=== PATIENT | female | born 1960 | race Caucasian/White ===

== ENCOUNTER 2021-01-23 15:06 | Emergency (ER) | payer OTHER, MEDICARE ==
[~2021-01-23] VITALS: Ht 172.7 cm; Wt 73.0 kg
[2021-01-23 15:37] VITALS: BP 148/85
== END 2021-01-23 16:39 | disposition home or self-care (01) ==
LOC: ER 15:06
DX: L02.31 Cutaneous abscess of buttock (principal); I10 Essential (primary) hypertension; M19.90 Unspecified osteoarthritis, unspecified site
CPT/HCPCS: 10060

== ENCOUNTER 2021-01-25 21:27 | Emergency (ER) | payer OTHER, MEDICARE ==
[~2021-01-25] VITALS: Ht 172.7 cm; Wt 74.4 kg
[2021-01-25 23:06] VITALS: BP 99/70
== END 2021-01-26 01:05 | disposition home or self-care (01) ==
LOC: ER 21:29
DX: L02.31 Cutaneous abscess of buttock (principal); I10 Essential (primary) hypertension

== ENCOUNTER 2021-02-05 12:59 | Emergency (ER) | payer OTHER, MEDICARE ==
[~2021-02-05] VITALS: Ht 172.7 cm; Wt 74.4 kg
[2021-02-05 15:42] VITALS: BP 142/91
== END 2021-02-05 15:50 | disposition home or self-care (01) ==
LOC: ER 12:59
DX: L02.31 Cutaneous abscess of buttock (principal); I10 Essential (primary) hypertension

== ENCOUNTER 2021-04-16 22:47 | Inpatient (IN) | payer OTHER, MEDICARE ==
[~2021-04-16] VITALS: Ht 172.7 cm; Wt 79.8 kg
[2021-04-16] MEDS ORDERED: ACCU-CHEK COMFORT CURVE STRIP VI ONE (23:30)
[2021-04-16] MEDS ORDERED: SODIUM CHLORIDE 0.9% 500 ML IV ONE (23:30)
[2021-04-16] MEDS ORDERED: VANCOMYCIN 1,500 MG in D5W 5% 250 ML IV STA (23:55)
[2021-04-17] VITALS (45 sets, daily range): BP systolic 84–132; BP diastolic 50–80
[2021-04-17 00:35] LABS: Hemoglobin 11.5 g/dL (12.2-16.2); Mean Corpuscular Hemoglobin 27.5 pg (28.0-32.0); Mean Corpuscular Hgb Conc. 32.8 g/dL (32.0-36.0); Mean Corpuscular Volume 83.8 fL (80.0-100.0); Red Blood Cells 4.17 10^6/uL (4.0-5.20); Red Cell Distribution Width 16.4 % (11.8-14.3)
[2021-04-17] MEDS ORDERED: VANCOMYCIN 1GM/250ML 500 ML IV ONE (00:42)
[2021-04-17 00:44] LABS: Basophils % (manual) 0 (0.0-2.0); Blast Cells 0; Eosinophils % (manual) 0 (0-7); Metamyelocytes % 0; Myelocytes % 0; Promyelocytes % 0; Reactive Lymphocytes 0
[2021-04-17 00:55] LABS: BUN/Creatinine Ratio 22.9; Potassium 3.2 mmol/L (3.5-5.1)
[2021-04-17 00:57] LABS: Bilirubin, Total 0.4 mg/dL (0.2-1.0); Total Protein 6.3 g/dL (6.4-8.2)
[2021-04-17 01:00] LABS: Lactic Acid w/Reflex 2.3 mmol/L (0.4-2.0)
[2021-04-17 01:14] LABS: Band Neutrophils % (manual) 46; Lymphocytes % (manual) 8 (10.0-50.0); Monocytes % (manual) 1 (0-12)
[2021-04-17] MEDS ORDERED: ACETAMINOPHEN 325 MG TAB PO ONE (02:30)
[2021-04-17] MEDS ORDERED: SODIUM CHLORIDE 0.9% 1,000 ML IV ONE (03:30)
[2021-04-17] MEDS: NOREPINEPHRINE 8 MG/250ML KIT 250 ML IV SCH ×2 (04:29→14:55)
[2021-04-17] MEDS ORDERED: VANCOMYCIN PER PHARMACY 0 MG IV SCH (04:30)
[2021-04-17] MEDS ORDERED: ACETAMINOPHEN 325 MG TAB PO PRN ×2 (04:30→14:00)
[2021-04-17] MEDS ORDERED: DOCUSATE SOD 100 MG CAP PO PRN (04:30)
[2021-04-17] MEDS ORDERED: DEXTROSE (50%) 50ML SYRG IV PRN (04:30)
[2021-04-17] MEDS ORDERED: SODIUM CHLORIDE 0.9% 1,000 ML IV SCH (04:30)
[2021-04-17] MEDS ORDERED: ONDANSETRON HCL 4 MG/2 ML VIAL IV PRN (04:30)
[2021-04-17] MEDS ORDERED: fentaNYL CITRATE 100 MCG/2 ML VL IV ONE (04:45)
[2021-04-17] MEDS ORDERED: POTASSIUM CHL 20MEQ/100ML 100 ML IV ONE ×2 (05:00→10:16)
[2021-04-17] MEDS ORDERED: methylPREDNISolone SOD SUCC 125 MG/2 ML VL IV ONE (05:15)
[2021-04-17] MEDS ORDERED: NITROGLYCERIN 0.4 MG SL TAB SL PRN (05:30)
[2021-04-17] MEDS ORDERED: MORPHINE SULFATE INJECTION 2 MG/ML SYRG IV PRN (05:30)
[2021-04-17] MEDS: ALBUMIN 25% 50 ML IV SCH ×3 (05:40→20:59)
[2021-04-17] MEDS ORDERED: MORPHINE SULFATE 4 MG/ML SYR/VIAL IV PRN (07:15)
[2021-04-17] MEDS: InsuLIN REG 1unit/0.01ml Soln (100units/ml) SC SCH ×4 (07:39→22:30)
[2021-04-17] MEDS: ACCU-CHEK COMFORT CURVE STRIP VI SCH ×4 (07:39→22:28)
[2021-04-17 08:01] LABS: Red Cell Distribution Width 16.2 % (11.8-14.3)
[2021-04-17 08:07] LABS: Calcium 7.3 mg/dL (8.5-10.1)
[2021-04-17 08:08] LABS: Hematocrit 33.4 % (36.0-46.0); Hemoglobin 11.1 g/dL (12.2-16.2); Mean Corpuscular Hemoglobin 27.8 pg (28.0-32.0); Mean Corpuscular Hgb Conc. 33.4 g/dL (32.0-36.0); Mean Corpuscular Volume 83.2 fL (80.0-100.0); Red Blood Cells 4.01 10^6/uL (4.0-5.20)
[2021-04-17 08:11] LABS: BUN/Creatinine Ratio 27.4; Bilirubin, Total 0.5 mg/dL (0.2-1.0)
[2021-04-17 08:24] LABS: White Blood Cell 44.7 10^3/uL (4.4-10.8)
[2021-04-17 08:25] LABS: Basophils % (manual) 0 (0.0-2.0); Blast Cells 0; Eosinophils % (manual) 0 (0-7); Myelocytes % 0; Promyelocytes % 0; Reactive Lymphocytes 0
[2021-04-17 08:40] LABS: Urine Bacteria NONE SEEN /hpf (None Seen); Urine Blood 2+ /uL (Negative); Urine Budding Yeast MODERATE /hpf (None Seen); Urine Specific Gravity 1.018 (1.001-1.035); Urine WBC 844 /hpf (0 - 5); Urine WBC Clumps PRESENT /hpf (None Seen)
[2021-04-17] MEDS ORDERED: SODIUM CHLORIDE 0.9% 2,100 ML IV ONE (09:00)
[2021-04-17] MEDS ORDERED: cefTRIAXone 1GM/50ML D5W 50 ML IV SCH (09:00)
[2021-04-17] MEDS ORDERED: cefTRIAXone 1GM/50ML D5W 50 ML IV ONE (09:05)
[2021-04-17] MEDS ORDERED: PIPERACILLIN-TAZOB 2.25GM 50 ML IV SCH (09:15)
[2021-04-17] MEDS: PIPERACILLIN-TAZOB 2.25GM 50 ML IV SCH ×3 (09:21→20:59)
[2021-04-17] MEDS: LINEZOLID 600MG/300ML 300 ML IV SCH ×2 (09:45→22:01)
[2021-04-17] MEDS: FAMOTIDINE (10MG/ML) 2ML VL IV SCH ×2 (09:45→22:00)
[2021-04-17] MEDS ORDERED: HEPARIN SODIUM (PORCINE) 5000 UNITS/ML 1ML VIAL SC SCH (10:00)
[2021-04-17] MEDS: SODIUM CHLORIDE 0.9% 1,000 ML IV SCH ×3 (10:28→18:18)
[2021-04-17] MEDS ORDERED: PANT40TA2 PO (10:55)
[2021-04-17] MEDS ORDERED: ALEN70TA2 PO (10:55)
[2021-04-17] MEDS ORDERED: PRE1T PO (10:55)
[2021-04-17] MEDS ORDERED: IBUP800T27 PO (10:55)
[2021-04-17] MEDS ORDERED: LEFL20TA PO (10:55)
[2021-04-17] MEDS ORDERED: HYDR200T36 PO (11:00)
[2021-04-17] MEDS ORDERED: LISI-285 PO (11:00)
[2021-04-17] MEDS ORDERED: ATO40T PO (11:00)
[2021-04-17] MEDS ORDERED: TOFA5TAB PO (11:00)
[2021-04-17] MEDS ORDERED: EMPA1TAB3 PO (11:00)
[2021-04-17] MEDS: POTASSIUM CHL 20MEQ/100ML 100 ML IV SCH ×3 (11:05→14:43)
[2021-04-17 12:06] LABS: Band Neutrophils % (manual) 29; Lymphocytes % (manual) 2 (10.0-50.0); Metamyelocytes % 1; Monocytes % (manual) 3 (0-12)
[2021-04-17] MEDS ORDERED: methylPREDNISolone SOD SUCC 40 MG/ML VL IV ONE (12:30)
[2021-04-17] MEDS ORDERED: methylPREDNISolone SOD SUCC 40 MG/ML VL ONE (12:32)
[2021-04-17] MEDS ORDERED: LORazepam 2MG/ML-1ML VIAL IV PRN (14:00)
[2021-04-17] MEDS ORDERED: PROCHLORPERAZINE MALEATE 10 MG TAB PO ONE (14:30)
[2021-04-17 16:26] LABS: Uric Acid 8.6 mg/dL (2.6-6.0)
[2021-04-17 16:50] LABS: CRP High Sensitivity > 19.0 mg/dL (< 0.3)
[2021-04-17] MEDS: methylPREDNISolone SOD SUCC 40 MG/ML VL IV SCH (17:23)
[2021-04-17] MEDS: HYDROcodone-ACET 5/325MG TAB PO PRN (17:30)
[2021-04-17] MEDS ORDERED: PROCHLORPERAZINE MALEATE 10 MG TAB PO PRN (22:00)
[2021-04-17] MEDS: ASCORBIC ACID 500 MG TAB PO SCH (22:01)
[2021-04-17] MEDS ORDERED: dilTIAZem 25 MG/5 ML VIAL IV ONE (23:56)
[2021-04-18] VITALS (85 sets, daily range): BP systolic 71–128; BP diastolic 41–91
[2021-04-18] MEDS: methylPREDNISolone SOD SUCC 40 MG/ML VL IV SCH ×3 (00:10→22:25)
[2021-04-18] MEDS ORDERED: dilTIAZem 25 MG/5 ML VIAL IV ONE (00:15)
[2021-04-18 00:32] LABS: BUN/Creatinine Ratio 35.8; Calcium 7.5 mg/dL (8.5-10.1); Potassium 3.9 mmol/L (3.5-5.1)
[2021-04-18] MEDS ORDERED: PHENYLEPHRINE IV 250 ML IV ONE (00:57)
[2021-04-18] MEDS ORDERED: AMIODARONE 450mg/250ml AE 250 ML IV ONE (01:18)
[2021-04-18] MEDS ORDERED: AMIODARONE 450mg/250ml AE 250 ML IV SCH (01:45)
[2021-04-18] MEDS: PIPERACILLIN-TAZOB 2.25GM 50 ML IV SCH ×4 (03:22→20:17)
[2021-04-18] MEDS ORDERED: ALBUMIN 5% 250 ML IV ONE (03:45)
[2021-04-18] MEDS: SODIUM CHLORIDE 0.9% 1,000 ML IV SCH ×2 (05:00→15:38)
[2021-04-18 05:53] LABS: Basophils # (auto) 0.1 10 ^3/uL (0-0.2); Basophils % (auto) 0.3 % (0.0-2.0); Eosinophils # (auto) 0 10 ^3/uL (0-0.8); Hematocrit 43.4 % (36.0-46.0); Hemoglobin 14.2 g/dL (12.2-16.2); Lymphocytes # (auto) 0.1 10 ^3/uL (0.4-5.4); Lymphocytes % (auto) 0.4 % (10.0-50.0); Mean Corpuscular Hemoglobin 27.4 pg (28.0-32.0); Mean Corpuscular Hgb Conc. 32.8 g/dL (32.0-36.0); Mean Corpuscular Volume 83.7 fL (80.0-100.0); Monocytes # (auto) 0.2 10 ^3/uL (0-1.3); Monocytes % (auto) 1.1 % (0.0-12.0); Neutrophils # (auto) 19.5 10 ^3/uL (1.6-8.6); Neutrophils % (auto) 98.2 % (37.0-80.0); Nucleated Red Blood Cells % 0.1 %; Red Blood Cells 5.19 10^6/uL (4.0-5.20); Red Cell Distribution Width 16.6 % (11.8-14.3); White Blood Cell 19.9 10^3/uL (4.4-10.8)
[2021-04-18 06:18] LABS: Magnesium 2.2 mg/dL (1.6-2.6); Potassium 3.4 mmol/L (3.5-5.1)
[2021-04-18 06:21] LABS: INR 1.07 (0.9-1.15); Partial Thromboplastin Time 33.5 sec (23.6-33.0)
[2021-04-18 06:31] LABS: Albumin 2.3 g/dL (3.4-5.0); BUN/Creatinine Ratio 36.8; Bilirubin, Total 0.4 mg/dL (0.2-1.0); Calcium 7.6 mg/dL (8.5-10.1); Phosphorus 3.9 mg/dL (2.5-4.90)
[2021-04-18] MEDS: ACCU-CHEK COMFORT CURVE STRIP VI SCH ×4 (06:38→22:00)
[2021-04-18] MEDS: InsuLIN REG 1unit/0.01ml Soln (100units/ml) SC SCH ×4 (06:39→22:44)
[2021-04-18 06:47] LABS: Thyroid Stimulating Hormone 0.04 uIU/mL (0.358-3.74)
[2021-04-18] MEDS: MORPHINE SULFATE 4 MG/ML SYR/VIAL IV PRN ×2 (08:48→14:08)
[2021-04-18] MEDS: ENOXAPARIN SOD 30 MG/0.3 ML SYRINGE SC SCH (08:52)
[2021-04-18] MEDS: FAMOTIDINE (10MG/ML) 2ML VL IV SCH ×3 (09:27→22:25)
[2021-04-18] MEDS: LINEZOLID 600MG/300ML 300 ML IV SCH (09:27)
[2021-04-18] MEDS: AMIODARONE 450mg/250ml AE 250 ML IV SCH (09:36)
[2021-04-18] MEDS: ASCORBIC ACID 500 MG TAB PO SCH (10:00)
[2021-04-18] MEDS ORDERED: MIDAZOLAM HCL 2MG/2ML 2ml VIAL (1mg/ml) IV ONE (10:15)
[2021-04-18] MEDS ORDERED: fentaNYL CITRATE 100 MCG/2 ML VL IV ONE (10:15)
[2021-04-18] MEDS ORDERED: POTASSIUM CHLORIDE 60 MEQ, LIDOCAINE 1% (LOCAL ANESTH.) 6 ML in SODIUM CHL 0.9% 500 ML IV ONE (11:30)
[2021-04-18] MEDS ORDERED: DIGOXIN (250MCG/ML) 2 ML AMPULE IV ONE (11:30)
[2021-04-18] MEDS ORDERED: LIDOCAINE 2%HCL (LOCAL ANESTH.) INJ 20ML MDV ONE (12:46)
[2021-04-18] MEDS: DIGOXIN (250MCG/ML) 2 ML AMPULE IV SCH ×2 (13:30→20:17)
[2021-04-18] MEDS ORDERED: AMIODARONE HCL 150 MG in D5W 5% 100 ML IV ONE (14:15)
[2021-04-18] MEDS ORDERED: LORazepam 2MG/ML-1ML VIAL IV PRN (14:15)
[2021-04-18 14:47] LABS: Free T3 2.11 pg/mL (2.3-4.2)
[2021-04-18 14:48] LABS: Free T4 (Free Thyroxine) 1.23 ng/dL (0.89-1.76)
[2021-04-18] MEDS: HYDROcodone-ACET 5/325MG TAB PO PRN (15:40)
[2021-04-18] MEDS ORDERED: VANCOMYCIN PER PHARMACY 0 MG IV SCH (21:15)
[2021-04-19] VITALS (37 sets, daily range): BP systolic 103–150; BP diastolic 65–93
[2021-04-19] MEDS: AMIODARONE 450mg/250ml AE 250 ML IV SCH (01:00)
[2021-04-19] MEDS: DIGOXIN (250MCG/ML) 2 ML AMPULE IV SCH (02:17)
[2021-04-19] MEDS: SODIUM CHLORIDE 0.9% 1,000 ML IV SCH ×2 (02:46→15:33)
[2021-04-19] MEDS: PIPERACILLIN-TAZOB 2.25GM 50 ML IV SCH ×4 (03:00→21:15)
[2021-04-19] MEDS: HYDROcodone-ACET 5/325MG TAB PO PRN ×2 (03:01→14:23)
[2021-04-19 05:52] LABS: Red Blood Cells 3.42 10^6/uL (4.0-5.20)
[2021-04-19 05:54] LABS: Hematocrit 28.3 % (36.0-46.0); Hemoglobin 9.4 g/dL (12.2-16.2); Mean Corpuscular Hemoglobin 27.4 pg (28.0-32.0); Mean Corpuscular Hgb Conc. 33.1 g/dL (32.0-36.0); Mean Corpuscular Volume 82.9 fL (80.0-100.0); Red Cell Distribution Width 16.7 % (11.8-14.3)
[2021-04-19 05:59] LABS: Basophils % (manual) 0 (0.0-2.0); Blast Cells 0; Eosinophils % (manual) 0 (0-7); Metamyelocytes % 0; Myelocytes % 0; Promyelocytes % 0; Reactive Lymphocytes 0; White Blood Cell 33.5 10^3/uL (4.4-10.8)
[2021-04-19 06:13] LABS: Albumin 1.7 g/dL (3.4-5.0); Calcium 8.4 mg/dL (8.5-10.1); Potassium 4.1 mmol/L (3.5-5.1)
[2021-04-19 06:17] LABS: Bilirubin, Total 0.3 mg/dL (0.2-1.0); Total Protein 5.5 g/dL (6.4-8.2)
[2021-04-19] MEDS: ACCU-CHEK COMFORT CURVE STRIP VI SCH ×4 (06:32→22:03)
[2021-04-19] MEDS: InsuLIN REG 1unit/0.01ml Soln (100units/ml) SC SCH ×4 (06:34→22:22)
[2021-04-19 08:41] LABS: Band Neutrophils % (manual) 12; Lymphocytes % (manual) 2 (10.0-50.0); Monocytes % (manual) 1 (0-12)
[2021-04-19] MEDS: ENOXAPARIN SOD 30 MG/0.3 ML SYRINGE SC SCH (09:27)
[2021-04-19] MEDS: FAMOTIDINE (10MG/ML) 2ML VL IV SCH (09:27)
[2021-04-19] MEDS: methylPREDNISolone SOD SUCC 40 MG/ML VL IV SCH ×2 (09:27→22:00)
[2021-04-19] MEDS: MORPHINE SULFATE 4 MG/ML SYR/VIAL IV PRN ×3 (10:54→22:26)
[2021-04-19] MEDS: VANCOMYCIN 1GM/250ML 250 ML IV SCH ×2 (11:15→21:59)
[2021-04-19] MEDS ORDERED: LORazepam 2MG/ML-1ML VIAL IV ONE (13:15)
[2021-04-19] MEDS ORDERED: DEXTROSE (50%) 50ML SYRG IV PRN (13:30)
[2021-04-19] MEDS ORDERED: AMIODARONE HCL 200 MG TAB PO ONE (14:15)
[2021-04-19] MEDS ORDERED: METOPROLOL TARTRATE 25 MG TAB PO ONE (14:15)
[2021-04-19] MEDS: AMIODARONE HCL 200 MG TAB PO SCH (22:00)
[2021-04-19] MEDS ORDERED: SACUBITRIL-VALSARTAN 24mg/26mg TAB PO SCH (22:00)
[2021-04-19] MEDS: ATORVASTATIN 20 MG TAB PO SCH (22:01)
[2021-04-19] MEDS: METOPROLOL TARTRATE 25 MG TAB PO SCH (22:03)
[2021-04-20] MEDS: SODIUM CHLORIDE 0.9% 1,000 ML IV SCH ×2 (02:46→18:28)
[2021-04-20] MEDS: MORPHINE SULFATE 4 MG/ML SYR/VIAL IV PRN ×2 (03:40→08:05)
[2021-04-20] MEDS: PIPERACILLIN-TAZOB 2.25GM 50 ML IV SCH ×4 (03:45→21:30)
[2021-04-20 06:02] LABS: Hematocrit 27.4 % (36.0-46.0); Hemoglobin 9.1 g/dL (12.2-16.2); Mean Corpuscular Hemoglobin 27.8 pg (28.0-32.0); Mean Corpuscular Hgb Conc. 33.1 g/dL (32.0-36.0); Mean Corpuscular Volume 83.9 fL (80.0-100.0); Red Blood Cells 3.27 10^6/uL (4.0-5.20); Red Cell Distribution Width 16.8 % (11.8-14.3); White Blood Cell 28.1 10^3/uL (4.4-10.8)
[2021-04-20 06:06] VITALS: BP 114/69
[2021-04-20 06:07] LABS: Basophils % (manual) 0 (0.0-2.0); Blast Cells 0; Eosinophils % (manual) 0 (0-7); Myelocytes % 0; Promyelocytes % 0; Reactive Lymphocytes 0
[2021-04-20] MEDS: ACCU-CHEK COMFORT CURVE STRIP VI SCH ×4 (06:09→22:00)
[2021-04-20] MEDS: InsuLIN REG 1unit/0.01ml Soln (100units/ml) SC SCH ×4 (06:17→22:00)
[2021-04-20 06:23] LABS: INR 0.98 (0.9-1.15)
[2021-04-20 06:25] LABS: Calcium 9.1 mg/dL (8.5-10.1); Potassium 4.3 mmol/L (3.5-5.1)
[2021-04-20 06:28] LABS: Albumin 1.7 g/dL (3.4-5.0); BUN/Creatinine Ratio 35.5
[2021-04-20 06:31] LABS: Bilirubin, Total 0.5 mg/dL (0.2-1.0); Total Protein 5.1 g/dL (6.4-8.2)
[2021-04-20 09:14] VITALS: BP 114/72
[2021-04-20 09:25] LABS: Band Neutrophils % (manual) 4; Lymphocytes % (manual) 2 (10.0-50.0); Metamyelocytes % 1; Monocytes % (manual) 1 (0-12)
[2021-04-20] MEDS: VANCOMYCIN 1GM/250ML 250 ML IV SCH ×2 (10:05→22:00)
[2021-04-20] MEDS: methylPREDNISolone SOD SUCC 40 MG/ML VL IV SCH ×2 (10:06→22:14)
[2021-04-20] MEDS: AMIODARONE HCL 200 MG TAB PO SCH ×2 (10:06→22:17)
[2021-04-20] MEDS: METOPROLOL TARTRATE 25 MG TAB PO SCH (10:06)
[2021-04-20] MEDS: ENOXAPARIN SOD 30 MG/0.3 ML SYRINGE SC SCH (10:07)
[2021-04-20] MEDS: FAMOTIDINE (10MG/ML) 2ML VL IV SCH ×2 (10:07→22:14)
[2021-04-20] MEDS ORDERED: hydrOXYchloroQUINE SULFATE 200 MG TAB PO ONE (10:45)
[2021-04-20 12:50] VITALS: BP 132/86
[2021-04-20] MEDS: MORPHINE SULFATE INJECTION 2 MG/ML SYRG IV PRN ×2 (13:10→20:55)
[2021-04-20 16:33] VITALS: BP 119/84
[2021-04-20 22:09] VITALS: BP 116/79
[2021-04-20] MEDS: hydrOXYchloroQUINE SULFATE 200 MG TAB PO SCH (22:14)
[2021-04-20] MEDS: ATORVASTATIN 20 MG TAB PO SCH (22:16)
[2021-04-21] MEDS: VANCOMYCIN 1GM/250ML 250 ML IV SCH ×3 (00:15→14:12)
[2021-04-21] MEDS: PIPERACILLIN-TAZOB 2.25GM 50 ML IV SCH ×5 (03:30→21:18)
[2021-04-21 05:09] VITALS: BP 121/85
[2021-04-21] MEDS: ACCU-CHEK COMFORT CURVE STRIP VI SCH ×4 (06:54→22:11)
[2021-04-21] MEDS: InsuLIN REG 1unit/0.01ml Soln (100units/ml) SC SCH ×4 (06:55→22:24)
[2021-04-21] MEDS: MORPHINE SULFATE INJECTION 2 MG/ML SYRG IV PRN ×5 (07:00→20:11)
[2021-04-21 09:00] VITALS: BP 183/123
[2021-04-21] MEDS: FAMOTIDINE (10MG/ML) 2ML VL IV SCH ×2 (10:02→22:11)
[2021-04-21] MEDS: methylPREDNISolone SOD SUCC 40 MG/ML VL IV SCH ×2 (10:03→22:11)
[2021-04-21] MEDS: AMIODARONE HCL 200 MG TAB PO SCH ×2 (10:04→22:10)
[2021-04-21] MEDS: hydrOXYchloroQUINE SULFATE 200 MG TAB PO SCH ×2 (10:04→22:10)
[2021-04-21] MEDS: ENOXAPARIN SOD 30 MG/0.3 ML SYRINGE SC SCH (10:05)
[2021-04-21 11:06] LABS: Hematocrit 32.6 % (36.0-46.0); Hemoglobin 10.4 g/dL (12.2-16.2); Mean Corpuscular Hemoglobin 27.4 pg (28.0-32.0); Mean Corpuscular Hgb Conc. 31.8 g/dL (32.0-36.0); Mean Corpuscular Volume 86.2 fL (80.0-100.0); Red Blood Cells 3.79 10^6/uL (4.0-5.20); Red Cell Distribution Width 16.9 % (11.8-14.3); White Blood Cell 25.8 10^3/uL (4.4-10.8)
[2021-04-21 11:22] LABS: Calcium 9.3 mg/dL (8.5-10.1); Potassium 4.2 mmol/L (3.5-5.1)
[2021-04-21 11:25] LABS: BUN/Creatinine Ratio 42.9
[2021-04-21 11:26] LABS: Basophils % (manual) 0 (0.0-2.0); Blast Cells 0; Eosinophils % (manual) 0 (0-7); Metamyelocytes % 0; Myelocytes % 0; Promyelocytes % 0; Reactive Lymphocytes 0
[2021-04-21 12:39] LABS: Band Neutrophils % (manual) 6; Lymphocytes % (manual) 7 (10.0-50.0); Monocytes % (manual) 4 (0-12)
[2021-04-21 13:00] VITALS: BP 122/82
[2021-04-21 17:00] VITALS: BP 131/82
[2021-04-21 22:00] VITALS: BP 134/94
[2021-04-21] MEDS: ATORVASTATIN 20 MG TAB PO SCH (22:10)
[2021-04-22] MEDS: PIPERACILLIN-TAZOB 2.25GM 50 ML IV SCH ×4 (03:49→21:06)
[2021-04-22] MEDS: MORPHINE SULFATE INJECTION 2 MG/ML SYRG IV PRN ×2 (04:31→10:59)
[2021-04-22 05:00] VITALS: BP 128/83
[2021-04-22 05:05] LABS: Urine Bacteria NONE SEEN /hpf (None Seen); Urine Blood Negative /uL (Negative); Urine Hyaline Cast FEW /lpf (0 - 2); Urine WBC 2 /hpf (0 - 5)
[2021-04-22 06:08] LABS: Basophils # (auto) 0 10 ^3/uL (0-0.2); Basophils % (auto) 0.2 % (0.0-2.0); Eosinophils # (auto) 0 10 ^3/uL (0-0.8); Hematocrit 31.8 % (36.0-46.0); Hemoglobin 10.2 g/dL (12.2-16.2); Lymphocytes # (auto) 0.3 10 ^3/uL (0.4-5.4); Lymphocytes % (auto) 1.7 % (10.0-50.0); Mean Corpuscular Hemoglobin 27.5 pg (28.0-32.0); Mean Corpuscular Hgb Conc. 32.2 g/dL (32.0-36.0); Mean Corpuscular Volume 85.3 fL (80.0-100.0); Monocytes # (auto) 0.5 10 ^3/uL (0-1.3); Monocytes % (auto) 2.7 % (0.0-12.0); Neutrophils # (auto) 19.1 10 ^3/uL (1.6-8.6); Neutrophils % (auto) 95.4 % (37.0-80.0); Red Blood Cells 3.73 10^6/uL (4.0-5.20); Red Cell Distribution Width 16.6 % (11.8-14.3)
[2021-04-22 06:21] LABS: Calcium 9.3 mg/dL (8.5-10.1); Potassium 4.6 mmol/L (3.5-5.1)
[2021-04-22 06:23] LABS: BUN/Creatinine Ratio 38.7
[2021-04-22] MEDS: ACCU-CHEK COMFORT CURVE STRIP VI SCH ×4 (06:55→22:03)
[2021-04-22] MEDS: InsuLIN REG 1unit/0.01ml Soln (100units/ml) SC SCH ×4 (06:56→22:05)
[2021-04-22 09:00] VITALS: BP 132/86
[2021-04-22] MEDS ORDERED: LIDOCAINE VISCOUS 2% 15ML UD PO ONE (09:00)
[2021-04-22] MEDS ORDERED: fentaNYL CITRATE 100 MCG/2 ML VL IV PRN (09:00)
[2021-04-22] MEDS ORDERED: MIDAZOLAM HCL 2MG/2ML 2ml VIAL (1mg/ml) IV ONE (09:00)
[2021-04-22] MEDS: hydrOXYchloroQUINE SULFATE 200 MG TAB PO SCH ×2 (10:00→22:03)
[2021-04-22] MEDS: AMIODARONE HCL 200 MG TAB PO SCH ×2 (10:00→22:02)
[2021-04-22] MEDS: ENOXAPARIN SOD 30 MG/0.3 ML SYRINGE SC SCH (10:41)
[2021-04-22] MEDS: methylPREDNISolone SOD SUCC 40 MG/ML VL IV SCH ×2 (10:41→22:02)
[2021-04-22] MEDS: FAMOTIDINE (10MG/ML) 2ML VL IV SCH ×2 (10:41→22:01)
[2021-04-22] MEDS ORDERED: ceFAZolin 1GM/50ML 100 ML IV ONE (12:45)
[2021-04-22 12:54] VITALS: BP 120/77
[2021-04-22] MEDS: VANCOMYCIN 1GM/250ML 250 ML IV SCH (13:00)
[2021-04-22] MEDS ORDERED: ceFAZolin 1GM VL ONE (13:09)
[2021-04-22] MEDS ORDERED: ROPIVACAINE 0.5% (5MG/ML) 20ML AMPULE IJ ONE (13:09)
[2021-04-22] MEDS ORDERED: ONDANSETRON HCL 4 MG/2 ML VIAL ONE (13:17)
[2021-04-22] MEDS ORDERED: SODIUM CHLORIDE LOCK 10 ML ONE (13:17)
[2021-04-22] MEDS ORDERED: PROPOFOL 10 MG/ML 20 ML IV ONE (13:17)
[2021-04-22] MEDS ORDERED: fentaNYL CITRATE 100 MCG/2 ML VL ONE (13:18)
[2021-04-22] MEDS ORDERED: MIDAZOLAM HCL 2MG/2ML 2ml VIAL (1mg/ml) ONE (13:18)
[2021-04-22] MEDS ORDERED: DexAMETHasone SOD PHOS 10MG/1ML VIAL INJ ONE (13:34)
[2021-04-22] MEDS ORDERED: NEOMYCIN-BACITRACIN-POLYM 15GM TOP OINT TOP ONE (13:52)
[2021-04-22] MEDS ORDERED: MORPHINE SULFATE INJECTION 2 MG/ML SYRG IV PRN (14:15)
[2021-04-22] MEDS ORDERED: METOCLOPRAMIDE HCL 5MG/ml INJ 2ml VIAL IV PRN (14:15)
[2021-04-22] MEDS ORDERED: METOCLOPRAMIDE HCL 5MG/ml INJ 2ml VIAL ONE (14:20)
[2021-04-22] MEDS ORDERED: MORPHINE SULFATE INJECTION 2 MG/ML SYRG ONE (14:20)
[2021-04-22] MEDS: HYDROmorphone HCL 2 MG/ML VL IV PRN ×2 (15:10→15:20)
[2021-04-22] MEDS: SODIUM CHLOR 0.9% PF (SALINE LOCK) 10ML VIAL/SYR IV SCH ×2 (16:57→22:02)
[2021-04-22 17:00] VITALS: BP 121/75
[2021-04-22 21:24] VITALS: BP 128/82
[2021-04-22] MEDS: ATORVASTATIN 20 MG TAB PO SCH (22:02)
[2021-04-22] MEDS: HYDROcodone-ACET 5/325MG TAB PO PRN (22:04)
[2021-04-23] MEDS: PIPERACILLIN-TAZOB 2.25GM 50 ML IV SCH ×4 (03:52→20:32)
[2021-04-23] MEDS: HYDROcodone-ACET 5/325MG TAB PO PRN ×3 (04:36→20:32)
[2021-04-23 05:30] VITALS: BP 153/94
[2021-04-23 05:33] LABS: Hematocrit 30.6 % (36.0-46.0); Hemoglobin 9.7 g/dL (12.2-16.2); Mean Corpuscular Hgb Conc. 31.6 g/dL (32.0-36.0); Mean Corpuscular Volume 88.5 fL (80.0-100.0); Red Blood Cells 3.46 10^6/uL (4.0-5.20); Red Cell Distribution Width 16.7 % (11.8-14.3); White Blood Cell 16.9 10^3/uL (4.4-10.8)
[2021-04-23 06:02] LABS: BUN/Creatinine Ratio 42.6; Calcium 9.3 mg/dL (8.5-10.1); Potassium 4.9 mmol/L (3.5-5.1)
[2021-04-23 06:04] LABS: Basophils % (manual) 0 (0.0-2.0); Blast Cells 0; Eosinophils % (manual) 0 (0-7); Metamyelocytes % 0; Myelocytes % 0; Promyelocytes % 0; Reactive Lymphocytes 0
[2021-04-23] MEDS: SODIUM CHLOR 0.9% PF (SALINE LOCK) 10ML VIAL/SYR IV SCH ×3 (06:28→22:01)
[2021-04-23] MEDS: ACCU-CHEK COMFORT CURVE STRIP VI SCH ×4 (06:29→22:03)
[2021-04-23] MEDS: InsuLIN REG 1unit/0.01ml Soln (100units/ml) SC SCH ×4 (06:32→22:03)
[2021-04-23 08:33] VITALS: BP 146/96
[2021-04-23] MEDS: hydrOXYchloroQUINE SULFATE 200 MG TAB PO SCH ×2 (10:00→22:02)
[2021-04-23] MEDS: ENOXAPARIN SOD 30 MG/0.3 ML SYRINGE SC SCH (10:00)
[2021-04-23] MEDS: FAMOTIDINE (10MG/ML) 2ML VL IV SCH ×2 (10:00→22:01)
[2021-04-23] MEDS: AMIODARONE HCL 200 MG TAB PO SCH ×2 (10:00→22:02)
[2021-04-23] MEDS: methylPREDNISolone SOD SUCC 40 MG/ML VL IV SCH ×2 (10:00→22:02)
[2021-04-23 11:19] LABS: Band Neutrophils % (manual) 2; Lymphocytes % (manual) 1 (10.0-50.0); Monocytes % (manual) 2 (0-12)
[2021-04-23 12:56] VITALS: BP 132/83
[2021-04-23] MEDS: VANCOMYCIN 1GM/250ML 250 ML IV SCH (13:00)
[2021-04-23] MEDS: MORPHINE SULFATE INJECTION 2 MG/ML SYRG IV PRN ×2 (13:16→17:04)
[2021-04-23 17:11] VITALS: BP 142/88
[2021-04-23 22:00] VITALS: BP 132/78
[2021-04-23] MEDS: ATORVASTATIN 20 MG TAB PO SCH (22:02)
[2021-04-24] MEDS: HYDROcodone-ACET 5/325MG TAB PO PRN (01:14)
[2021-04-24] MEDS: PIPERACILLIN-TAZOB 2.25GM 50 ML IV SCH ×4 (04:12→22:09)
[2021-04-24] MEDS: MORPHINE SULFATE INJECTION 2 MG/ML SYRG IV PRN ×4 (04:34→18:23)
[2021-04-24 05:00] VITALS: BP 130/89
[2021-04-24] MEDS: SODIUM CHLOR 0.9% PF (SALINE LOCK) 10ML VIAL/SYR IV SCH ×3 (06:38→22:09)
[2021-04-24] MEDS: InsuLIN REG 1unit/0.01ml Soln (100units/ml) SC SCH ×4 (06:40→22:00)
[2021-04-24] MEDS: ACCU-CHEK COMFORT CURVE STRIP VI SCH ×4 (07:00→22:11)
[2021-04-24 07:31] LABS: Basophils # (auto) 0 10 ^3/uL (0-0.2); Eosinophils # (auto) 0 10 ^3/uL (0-0.8); Hematocrit 27.7 % (36.0-46.0); Hemoglobin 9.1 g/dL (12.2-16.2); Lymphocytes # (auto) 0.5 10 ^3/uL (0.4-5.4); Lymphocytes % (auto) 3.1 % (10.0-50.0); Mean Corpuscular Hemoglobin 28.5 pg (28.0-32.0); Mean Corpuscular Hgb Conc. 32.7 g/dL (32.0-36.0); Mean Corpuscular Volume 86.9 fL (80.0-100.0); Monocytes # (auto) 0.7 10 ^3/uL (0-1.3); Monocytes % (auto) 4.7 % (0.0-12.0); Neutrophils # (auto) 14.2 10 ^3/uL (1.6-8.6); Neutrophils % (auto) 92.2 % (37.0-80.0); Red Blood Cells 3.18 10^6/uL (4.0-5.20); White Blood Cell 15.4 10^3/uL (4.4-10.8)
[2021-04-24 07:42] LABS: Potassium 4.2 mmol/L (3.5-5.1)
[2021-04-24 07:53] LABS: Calcium 9.2 mg/dL (8.5-10.1)
[2021-04-24 08:00] VITALS: BP 143/89
[2021-04-24] MEDS: IBUPROFEN 400 MG TAB PO PRN ×2 (09:29→18:24)
[2021-04-24] MEDS: FAMOTIDINE (10MG/ML) 2ML VL IV SCH ×2 (10:00→22:09)
[2021-04-24] MEDS: methylPREDNISolone SOD SUCC 40 MG/ML VL IV SCH ×2 (10:00→22:10)
[2021-04-24] MEDS: hydrOXYchloroQUINE SULFATE 200 MG TAB PO SCH ×2 (10:00→22:10)
[2021-04-24] MEDS: ENOXAPARIN SOD 30 MG/0.3 ML SYRINGE SC SCH (10:00)
[2021-04-24] MEDS: AMIODARONE HCL 200 MG TAB PO SCH ×2 (10:00→22:10)
[2021-04-24 13:00] VITALS: BP 122/75
[2021-04-24] MEDS: VANCOMYCIN 1GM/250ML 250 ML IV SCH (13:00)
[2021-04-24 17:07] VITALS: BP 150/94
[2021-04-24 22:00] VITALS: BP 131/83
[2021-04-24] MEDS: ATORVASTATIN 20 MG TAB PO SCH (22:10)
[2021-04-25] MEDS: MORPHINE SULFATE INJECTION 2 MG/ML SYRG IV PRN ×5 (01:28→22:21)
[2021-04-25] MEDS: PIPERACILLIN-TAZOB 2.25GM 50 ML IV SCH ×2 (03:50→08:44)
[2021-04-25 05:00] VITALS: BP 130/75
[2021-04-25 05:32] LABS: Basophils # (auto) 0 10 ^3/uL (0-0.2); Basophils % (auto) 0.1 % (0.0-2.0); Eosinophils # (auto) 0 10 ^3/uL (0-0.8); Hematocrit 28.1 % (36.0-46.0); Lymphocytes # (auto) 0.3 10 ^3/uL (0.4-5.4); Lymphocytes % (auto) 1.8 % (10.0-50.0); Mean Corpuscular Hemoglobin 27.7 pg (28.0-32.0); Mean Corpuscular Hgb Conc. 31.9 g/dL (32.0-36.0); Mean Corpuscular Volume 86.6 fL (80.0-100.0); Monocytes # (auto) 0.7 10 ^3/uL (0-1.3); Monocytes % (auto) 4.1 % (0.0-12.0); Neutrophils # (auto) 16.8 10 ^3/uL (1.6-8.6); Red Blood Cells 3.25 10^6/uL (4.0-5.20); Red Cell Distribution Width 16.2 % (11.8-14.3); White Blood Cell 17.8 10^3/uL (4.4-10.8)
[2021-04-25 06:04] LABS: Calcium 9.1 mg/dL (8.5-10.1); Potassium 4.3 mmol/L (3.5-5.1)
[2021-04-25 06:08] LABS: BUN/Creatinine Ratio 34.1
[2021-04-25] MEDS: ACCU-CHEK COMFORT CURVE STRIP VI SCH ×4 (06:21→22:09)
[2021-04-25] MEDS: SODIUM CHLOR 0.9% PF (SALINE LOCK) 10ML VIAL/SYR IV SCH ×3 (06:21→22:09)
[2021-04-25] MEDS: InsuLIN REG 1unit/0.01ml Soln (100units/ml) SC SCH ×4 (06:34→22:11)
[2021-04-25 09:00] VITALS: BP 117/76
[2021-04-25] MEDS ORDERED: metroNIDAZOLE 500 MG TAB PO ONE (09:30)
[2021-04-25] MEDS ORDERED: NYSTATIN (MOUTH-THROAT) 500,000 UNITS/5 ML SUSP MT ONE (09:30)
[2021-04-25] MEDS: FAMOTIDINE 20 MG TAB PO SCH (10:00)
[2021-04-25] MEDS: predniSONE 20 MG TAB PO SCH (10:00)
[2021-04-25] MEDS: FLORASTOR (S. BOULARDII) 250 MG CAP PO SCH (10:00)
[2021-04-25] MEDS: hydrOXYchloroQUINE SULFATE 200 MG TAB PO SCH ×2 (10:24→22:13)
[2021-04-25] MEDS: AMIODARONE HCL 200 MG TAB PO SCH ×2 (10:24→22:14)
[2021-04-25] MEDS: ENOXAPARIN SOD 30 MG/0.3 ML SYRINGE SC SCH (10:24)
[2021-04-25] MEDS: HYDROcodone-ACET 5/325MG TAB PO PRN ×2 (10:35→16:08)
[2021-04-25] MEDS: metroNIDAZOLE 500 MG TAB PO SCH ×2 (14:00→22:13)
[2021-04-25 14:01] LABS: Hemoglobin 10.1 g/dL (12.2-16.2); Red Cell Distribution Width 16.2 % (11.8-14.3)
[2021-04-25 14:05] LABS: Hematocrit 31.7 % (36.0-46.0); Mean Corpuscular Hemoglobin 27.6 pg (28.0-32.0); Mean Corpuscular Hgb Conc. 31.8 g/dL (32.0-36.0); Mean Corpuscular Volume 86.8 fL (80.0-100.0); Red Blood Cells 3.65 10^6/uL (4.0-5.20)
[2021-04-25 14:24] LABS: Basophils % (manual) 0 (0.0-2.0); Blast Cells 0; Eosinophils % (manual) 0 (0-7); Metamyelocytes % 0; Myelocytes % 0; Promyelocytes % 0; Reactive Lymphocytes 0; White Blood Cell 31.2 10^3/uL (4.4-10.8)
[2021-04-25 15:20] LABS: Band Neutrophils % (manual) 5; Lymphocytes % (manual) 3 (10.0-50.0); Monocytes % (manual) 2 (0-12)
[2021-04-25 15:29] VITALS: BP 123/76
[2021-04-25] MEDS ORDERED: VANCOMYCIN 1GM/250ML 250 ML IV ONE (15:51)
[2021-04-25 17:00] VITALS: BP 151/86
[2021-04-25] MEDS: NYSTATIN (MOUTH-THROAT) 500,000 UNITS/5 ML SUSP MT SCH ×2 (17:47→22:14)
[2021-04-25] MEDS: ATORVASTATIN 20 MG TAB PO SCH (22:13)
[2021-04-26 00:30] VITALS: BP 130/84
[2021-04-26 05:06] VITALS: BP 116/75
[2021-04-26 05:41] LABS: Basophils # (auto) 0.1 10 ^3/uL (0-0.2); Basophils % (auto) 0.4 % (0.0-2.0); Eosinophils # (auto) 0 10 ^3/uL (0-0.8); Eosinophils % (auto) 0.1 % (0.0-7.0); Hematocrit 30.5 % (36.0-46.0); Hemoglobin 9.5 g/dL (12.2-16.2); Lymphocytes # (auto) 0.6 10 ^3/uL (0.4-5.4); Lymphocytes % (auto) 2.8 % (10.0-50.0); Mean Corpuscular Hemoglobin 28.1 pg (28.0-32.0); Mean Corpuscular Hgb Conc. 31.3 g/dL (32.0-36.0); Mean Corpuscular Volume 89.8 fL (80.0-100.0); Monocytes % (auto) 4.3 % (0.0-12.0); Neutrophils # (auto) 21.1 10 ^3/uL (1.6-8.6); Neutrophils % (auto) 92.4 % (37.0-80.0); Red Blood Cells 3.39 10^6/uL (4.0-5.20); Red Cell Distribution Width 16.7 % (11.8-14.3); White Blood Cell 22.9 10^3/uL (4.4-10.8)
[2021-04-26 06:09] LABS: Potassium 4.3 mmol/L (3.5-5.1)
[2021-04-26 06:13] LABS: BUN/Creatinine Ratio 36.1
[2021-04-26] MEDS: SODIUM CHLOR 0.9% PF (SALINE LOCK) 10ML VIAL/SYR IV SCH ×3 (06:13→21:35)
[2021-04-26] MEDS: InsuLIN REG 1unit/0.01ml Soln (100units/ml) SC SCH ×4 (06:13→21:27)
[2021-04-26] MEDS: ACCU-CHEK COMFORT CURVE STRIP VI SCH ×4 (06:13→21:26)
[2021-04-26] MEDS: MORPHINE SULFATE INJECTION 2 MG/ML SYRG IV PRN ×3 (06:20→20:26)
[2021-04-26] MEDS: metroNIDAZOLE 500 MG TAB PO SCH ×3 (06:21→21:35)
[2021-04-26] MEDS: NYSTATIN (MOUTH-THROAT) 500,000 UNITS/5 ML SUSP MT SCH ×4 (06:21→21:35)
[2021-04-26] MEDS: VANCOMYCIN 1GM/250ML 250 ML IV SCH (08:23)
[2021-04-26 09:00] VITALS: BP 124/74
[2021-04-26] MEDS ORDERED: POTASSIUM CHL 20 Meq TABLET PO ONE (09:45)
[2021-04-26] MEDS ORDERED: FUROSEMIDE 20 MG/2 ML VIAL IV ONE (09:45)
[2021-04-26 10:59] LABS: INR 1.06 (0.9-1.15)
[2021-04-26] MEDS: predniSONE 20 MG TAB PO SCH (11:18)
[2021-04-26] MEDS: FLORASTOR (S. BOULARDII) 250 MG CAP PO SCH (11:18)
[2021-04-26] MEDS: FAMOTIDINE 20 MG TAB PO SCH (11:19)
[2021-04-26] MEDS: AMIODARONE HCL 200 MG TAB PO SCH ×2 (11:19→21:35)
[2021-04-26] MEDS: hydrOXYchloroQUINE SULFATE 200 MG TAB PO SCH ×2 (11:20→21:36)
[2021-04-26] MEDS: ENOXAPARIN SOD 30 MG/0.3 ML SYRINGE SC SCH (11:20)
[2021-04-26 13:00] VITALS: BP 145/83
[2021-04-26 17:00] VITALS: BP 132/75
[2021-04-26] MEDS: ATORVASTATIN 20 MG TAB PO SCH (21:35)
[2021-04-26 22:00] VITALS: BP 110/61
[2021-04-27] MEDS: VANCOMYCIN 1GM/250ML 250 ML IV SCH ×2 (01:37→19:39)
[2021-04-27 05:00] VITALS: BP 127/73
[2021-04-27] MEDS: metroNIDAZOLE 500 MG TAB PO SCH (05:34)
[2021-04-27] MEDS: NYSTATIN (MOUTH-THROAT) 500,000 UNITS/5 ML SUSP MT SCH ×4 (05:34→21:47)
[2021-04-27] MEDS: SODIUM CHLOR 0.9% PF (SALINE LOCK) 10ML VIAL/SYR IV SCH ×3 (05:34→21:47)
[2021-04-27 05:44] LABS: BUN/Creatinine Ratio 23.8; Calcium 8.6 mg/dL (8.5-10.1); Potassium 3.6 mmol/L (3.5-5.1)
[2021-04-27 05:45] LABS: Basophils # (auto) 0 10 ^3/uL (0-0.2); Basophils % (auto) 0.1 % (0.0-2.0); Eosinophils # (auto) 0 10 ^3/uL (0-0.8); Eosinophils % (auto) 0.2 % (0.0-7.0); Hematocrit 27.1 % (36.0-46.0); Lymphocytes # (auto) 0.7 10 ^3/uL (0.4-5.4); Mean Corpuscular Hemoglobin 28.5 pg (28.0-32.0); Mean Corpuscular Hgb Conc. 33.3 g/dL (32.0-36.0); Mean Corpuscular Volume 85.4 fL (80.0-100.0); Monocytes % (auto) 5.3 % (0.0-12.0); Neutrophils # (auto) 16.5 10 ^3/uL (1.6-8.6); Neutrophils % (auto) 90.4 % (37.0-80.0); Red Blood Cells 3.17 10^6/uL (4.0-5.20); Red Cell Distribution Width 16.4 % (11.8-14.3); White Blood Cell 18.3 10^3/uL (4.4-10.8)
[2021-04-27] MEDS: InsuLIN REG 1unit/0.01ml Soln (100units/ml) SC SCH ×4 (06:06→21:42)
[2021-04-27] MEDS: MORPHINE SULFATE INJECTION 2 MG/ML SYRG IV PRN ×2 (06:06→19:49)
[2021-04-27] MEDS: ACCU-CHEK COMFORT CURVE STRIP VI SCH ×4 (06:06→21:41)
[2021-04-27 09:00] VITALS: BP 114/70
[2021-04-27] MEDS ORDERED: FUROSEMIDE 20 MG/2 ML VIAL IV ONE (09:00)
[2021-04-27] MEDS ORDERED: POTASSIUM CHL 20 Meq TABLET PO ONE (09:00)
[2021-04-27] MEDS: ENOXAPARIN SOD 30 MG/0.3 ML SYRINGE SC SCH (11:42)
[2021-04-27] MEDS: hydrOXYchloroQUINE SULFATE 200 MG TAB PO SCH ×2 (11:43→21:55)
[2021-04-27] MEDS: predniSONE 20 MG TAB PO SCH (11:45)
[2021-04-27] MEDS: FLORASTOR (S. BOULARDII) 250 MG CAP PO SCH (11:46)
[2021-04-27] MEDS: FAMOTIDINE 20 MG TAB PO SCH (11:46)
[2021-04-27] MEDS: AMIODARONE HCL 200 MG TAB PO SCH ×2 (11:46→21:47)
[2021-04-27 13:00] VITALS: BP 117/74
[2021-04-27] MEDS ORDERED: LOPERAMIDE HCL 2 MG CAP PO PRN (14:15)
[2021-04-27] MEDS: HYDROcodone-ACET 5/325MG TAB PO PRN (14:40)
[2021-04-27 16:41] VITALS: BP 110/71
[2021-04-27 21:30] VITALS: BP 118/70
[2021-04-27] MEDS: ATORVASTATIN 20 MG TAB PO SCH (21:46)
[2021-04-28 05:00] VITALS: BP 103/63
[2021-04-28 05:21] LABS: Basophils # (auto) 0 10 ^3/uL (0-0.2); Basophils % (auto) 0.2 % (0.0-2.0); Eosinophils # (auto) 0 10 ^3/uL (0-0.8); Eosinophils % (auto) 0.2 % (0.0-7.0); Hematocrit 27.8 % (36.0-46.0); Hemoglobin 9.1 g/dL (12.2-16.2); Lymphocytes # (auto) 0.8 10 ^3/uL (0.4-5.4); Lymphocytes % (auto) 5.1 % (10.0-50.0); Mean Corpuscular Hemoglobin 27.9 pg (28.0-32.0); Mean Corpuscular Hgb Conc. 32.8 g/dL (32.0-36.0); Mean Corpuscular Volume 85.1 fL (80.0-100.0); Monocytes % (auto) 6.5 % (0.0-12.0); Neutrophils # (auto) 13.8 10 ^3/uL (1.6-8.6); Red Blood Cells 3.27 10^6/uL (4.0-5.20); Red Cell Distribution Width 16.3 % (11.8-14.3); White Blood Cell 15.7 10^3/uL (4.4-10.8)
[2021-04-28] MEDS: SODIUM CHLOR 0.9% PF (SALINE LOCK) 10ML VIAL/SYR IV SCH ×3 (05:32→21:41)
[2021-04-28] MEDS: NYSTATIN (MOUTH-THROAT) 500,000 UNITS/5 ML SUSP MT SCH ×4 (05:32→21:41)
[2021-04-28 05:43] LABS: BUN/Creatinine Ratio 20.5; Calcium 8.6 mg/dL (8.5-10.1); Potassium 3.8 mmol/L (3.5-5.1)
[2021-04-28] MEDS: InsuLIN REG 1unit/0.01ml Soln (100units/ml) SC SCH ×4 (06:16→21:43)
[2021-04-28] MEDS: ACCU-CHEK COMFORT CURVE STRIP VI SCH ×4 (06:16→21:43)
[2021-04-28] MEDS: MORPHINE SULFATE INJECTION 2 MG/ML SYRG IV PRN ×4 (06:36→18:10)
[2021-04-28 09:00] VITALS: BP 121/76
[2021-04-28] MEDS ORDERED: ceFAZolin 2 GM in D5W 5% 100 ML IV ONE (09:00)
[2021-04-28] MEDS: ENOXAPARIN SOD 30 MG/0.3 ML SYRINGE SC SCH (10:08)
[2021-04-28] MEDS: FAMOTIDINE 20 MG TAB PO SCH (10:09)
[2021-04-28] MEDS: hydrOXYchloroQUINE SULFATE 200 MG TAB PO SCH ×2 (10:09→21:42)
[2021-04-28] MEDS: FLORASTOR (S. BOULARDII) 250 MG CAP PO SCH (10:09)
[2021-04-28] MEDS: predniSONE 20 MG TAB PO SCH (10:09)
[2021-04-28] MEDS: AMIODARONE HCL 200 MG TAB PO SCH ×2 (10:09→21:40)
[2021-04-28 13:00] VITALS: BP 99/74
[2021-04-28] MEDS: ceFAZolin 2 GM in D5W 5% 100 ML IV SCH ×2 (14:33→21:41)
[2021-04-28 17:00] VITALS: BP 115/70
[2021-04-28] MEDS: ATORVASTATIN 20 MG TAB PO SCH (21:41)
[2021-04-28] MEDS: HYDROcodone-ACET 5/325MG TAB PO PRN (22:24)
[2021-04-29] MEDS: MORPHINE SULFATE INJECTION 2 MG/ML SYRG IV PRN ×5 (02:06→21:06)
[2021-04-29 05:35] LABS: Basophils # (auto) 0 10 ^3/uL (0-0.2); Basophils % (auto) 0.3 % (0.0-2.0); Eosinophils # (auto) 0 10 ^3/uL (0-0.8); Eosinophils % (auto) 0.3 % (0.0-7.0); Hematocrit 26.3 % (36.0-46.0); Hemoglobin 8.6 g/dL (12.2-16.2); Lymphocytes # (auto) 0.9 10 ^3/uL (0.4-5.4); Lymphocytes % (auto) 5.8 % (10.0-50.0); Mean Corpuscular Hemoglobin 27.8 pg (28.0-32.0); Mean Corpuscular Hgb Conc. 32.9 g/dL (32.0-36.0); Mean Corpuscular Volume 84.6 fL (80.0-100.0); Monocytes # (auto) 1.1 10 ^3/uL (0-1.3); Monocytes % (auto) 7.4 % (0.0-12.0); Neutrophils # (auto) 12.5 10 ^3/uL (1.6-8.6); Neutrophils % (auto) 86.2 % (37.0-80.0); Red Cell Distribution Width 16.1 % (11.8-14.3); White Blood Cell 14.5 10^3/uL (4.4-10.8)
[2021-04-29 05:46] VITALS: BP 121/81
[2021-04-29] MEDS: ceFAZolin 2 GM in D5W 5% 100 ML IV SCH ×3 (06:22→21:06)
[2021-04-29] MEDS: ACCU-CHEK COMFORT CURVE STRIP VI SCH ×4 (06:22→21:08)
[2021-04-29] MEDS: NYSTATIN (MOUTH-THROAT) 500,000 UNITS/5 ML SUSP MT SCH ×4 (06:22→21:05)
[2021-04-29] MEDS: SODIUM CHLOR 0.9% PF (SALINE LOCK) 10ML VIAL/SYR IV SCH ×3 (06:22→23:23)
[2021-04-29] MEDS: InsuLIN REG 1unit/0.01ml Soln (100units/ml) SC SCH ×4 (06:28→21:07)
[2021-04-29 08:30] VITALS: BP 97/60
[2021-04-29] MEDS: predniSONE 20 MG TAB PO SCH (10:33)
[2021-04-29] MEDS: AMIODARONE HCL 200 MG TAB PO SCH ×2 (10:36→21:05)
[2021-04-29] MEDS: FLORASTOR (S. BOULARDII) 250 MG CAP PO SCH (10:36)
[2021-04-29] MEDS: ENOXAPARIN SOD 30 MG/0.3 ML SYRINGE SC SCH (10:37)
[2021-04-29] MEDS: hydrOXYchloroQUINE SULFATE 200 MG TAB PO SCH ×2 (10:37→21:07)
[2021-04-29] MEDS: FAMOTIDINE 20 MG TAB PO SCH (10:37)
[2021-04-29] MEDS ORDERED: POTASSIUM CHL 20 Meq TABLET PO ONE (12:45)
[2021-04-29] MEDS ORDERED: FUROSEMIDE 20 MG TAB PO ONE (12:45)
[2021-04-29 13:30] VITALS: BP 110/58
[2021-04-29 15:30] VITALS: BP 122/74
[2021-04-29] MEDS: ATORVASTATIN 20 MG TAB PO SCH (21:05)
[2021-04-29 22:02] VITALS: BP 121/76
[2021-04-30] MEDS: MORPHINE SULFATE INJECTION 2 MG/ML SYRG IV PRN ×3 (03:46→13:23)
[2021-04-30 05:15] VITALS: BP 105/67
[2021-04-30] MEDS: NYSTATIN (MOUTH-THROAT) 500,000 UNITS/5 ML SUSP MT SCH ×2 (06:00→12:00)
[2021-04-30] MEDS: InsuLIN REG 1unit/0.01ml Soln (100units/ml) SC SCH ×3 (06:31→17:00)
[2021-04-30] MEDS: SODIUM CHLOR 0.9% PF (SALINE LOCK) 10ML VIAL/SYR IV SCH ×2 (06:32→13:23)
[2021-04-30] MEDS: ceFAZolin 2 GM in D5W 5% 100 ML IV SCH ×2 (06:32→13:21)
[2021-04-30] MEDS: ACCU-CHEK COMFORT CURVE STRIP VI SCH ×3 (06:32→17:00)
[2021-04-30 09:00] VITALS: BP 92/58
[2021-04-30] MEDS ORDERED: LIDOCAINE 1% (LOCAL ANESTH.) PF 5ml SDV ID ONE (09:30)
[2021-04-30] MEDS: FLORASTOR (S. BOULARDII) 250 MG CAP PO SCH (09:41)
[2021-04-30] MEDS: hydrOXYchloroQUINE SULFATE 200 MG TAB PO SCH (09:42)
[2021-04-30] MEDS: AMIODARONE HCL 200 MG TAB PO SCH (09:42)
[2021-04-30] MEDS: ENOXAPARIN SOD 30 MG/0.3 ML SYRINGE SC SCH (09:42)
[2021-04-30] MEDS: FAMOTIDINE 20 MG TAB PO SCH (09:42)
[2021-04-30] MEDS: predniSONE 20 MG TAB PO SCH (09:42)
[2021-04-30] MEDS ORDERED: SODIUM CHLOR 0.9% PF (SALINE LOCK) 10ML VIAL/SYR IV SCH (10:00)
[2021-04-30 12:57] VITALS: BP 95/62
[2021-04-30 14:34] VITALS: BP 114/72
[2021-04-30 16:53] VITALS: BP 117/67
[2021-04-30] MEDS: HYDROcodone-ACET 5/325MG TAB PO PRN (17:02)
== END 2021-04-30 17:30 | DRG 255 ==
LOC: ER 22:49 → OVERFLOW 04-17 05:29 → UNDOADMIN 04-17 05:29 → ICU WEST 04-17 05:29 → TELE-CENTR 04-19 11:07 → CENTRAL 04-24 10:43
PROVIDERS: ADMIT Nurse Practitioner Family; ATTEND Internal Medicine
PROC: 02HV33Z Insertion of Infusion Device into Superior Vena Cava, Percutaneous Approach (ICD-10-PCS; 2021-04-17)
PROC: 05PYX3Z Removal of Infusion Device from Upper Vein, External Approach (ICD-10-PCS; 2021-04-18)
PROC: B246ZZ4 Ultrasonography of Right and Left Heart, Transesophageal (ICD-10-PCS; 2021-04-22)
PROC: 0QTN0ZZ Resection of Right Metatarsal, Open Approach (ICD-10-PCS; principal; 2021-04-22 13:16)
PROC: 0Y990ZZ Drainage of Right Lower Extremity, Open Approach (ICD-10-PCS; 2021-04-22 13:16)
PROC: 0Y6R0Z0 Detachment at Right 2nd Toe, Complete, Open Approach (ICD-10-PCS; 2021-04-22 13:16)
PROC: 05HA33Z Insertion of Infusion Device into Left Brachial Vein, Percutaneous Approach (ICD-10-PCS; 2021-04-26)
PROC: B54NZZA Ultrasonography of Left Upper Extremity Veins, Guidance (ICD-10-PCS; 2021-04-26)
DX: T80.211A Bloodstream infection due to central venous catheter, initial encounter (principal); A41.01 Sepsis due to Methicillin susceptible Staphylococcus aureus; N17.0 Acute kidney failure with tubular necrosis; E43 Unspecified severe protein-calorie malnutrition; R65.21 Severe sepsis with septic shock; I21.A1 Myocardial infarction type 2; E87.1 Hypo-osmolality and hyponatremia; L02.611 Cutaneous abscess of right foot; L03.115 Cellulitis of right lower limb; M86.171 Other acute osteomyelitis, right ankle and foot; D68.69 Other thrombophilia; E88.09 Other disorders of plasma-protein metabolism, not elsewhere classified; E87.6 Hypokalemia; Z20.822 Contact with and (suspected) exposure to COVID-19; M06.9 Rheumatoid arthritis, unspecified; N18.32 Chronic kidney disease, stage 3b; M81.0 Age-related osteoporosis without current pathological fracture; D69.6 Thrombocytopenia, unspecified; E78.5 Hyperlipidemia, unspecified; I48.91 Unspecified atrial fibrillation; E11.69 Type 2 diabetes mellitus with other specified complication; D64.9 Anemia, unspecified; Y84.8 Other medical procedures as the cause of abnormal reaction of the patient, or of later complication, without mention of misadventure at the time of the procedure; M19.90 Unspecified osteoarthritis, unspecified site; E11.65 Type 2 diabetes mellitus with hyperglycemia; Z68.26 Body mass index [BMI] 26.0-26.9, adult; Z92.21 Personal history of antineoplastic chemotherapy; Z85.3 Personal history of malignant neoplasm of breast
CPT/HCPCS: 36415; 36556; 36569; 71045; 73100; 73718; 80048; 80053; 80061; 80202; 81001; 82565; 82962; 83036; 83605; 83615; 83735; 83880; 84100; 84439; 84443; 84481; 84484; 84550; 85007; 85025; 85027; 85379; 85610; 85652; 85730; 86141; 86160; 86850; 86900; 86901; 87040; 87070; 87075; 87077; 87081; 87147; 87186; 87205; 87426; 87493; 93005; 93306; 93312; 93925; 96361; 96365; 96367; 96368; 96372; 96375; 96376; 97110; 97116; 97163; 97530; 99152; G0378; J0690; J0696; J1100; J1815; J2001; J2250; J2405; J2543; J2704; J3480; J3490; J7060; Q0164

== ENCOUNTER 2021-10-15 07:40 | Inpatient (IN) | payer OTHER, MEDICARE ==
[~2021-10-15] VITALS: Ht 175.3 cm; Wt 55.4 kg
[~2021-10-15 07:40] MED LIST: ALEN70TA2 PO; ATO40T PO; EMPA1TAB3 PO; HYDR200T36 PO; IBUP800T27 PO; LEFL20TA PO; LISI-285 PO; PANT40TA2 PO; PRE1T PO; TOFA5TAB PO
[2021-10-15 08:28] LABS: Basophils # (auto) 0.1 10 ^3/uL (0-0.2); Eosinophils # (auto) 0.2 10 ^3/uL (0-0.8); Hemoglobin 11.1 g/dL (12.2-16.2); Lymphocytes # (auto) 1.1 10 ^3/uL (0.4-5.4); Monocytes # (auto) 1.1 10 ^3/uL (0-1.3)
[2021-10-15 08:29] LABS: Basophils % (auto) 0.6 % (0.0-2.0); Eosinophils % (auto) 1.3 % (0.0-7.0); Hematocrit 33.9 % (36.0-46.0); Lymphocytes % (auto) 7.1 % (10.0-50.0); Mean Corpuscular Hemoglobin 25.5 pg (28.0-32.0); Mean Corpuscular Hgb Conc. 32.9 g/dL (32.0-36.0); Mean Corpuscular Volume 77.7 fL (80.0-100.0); Monocytes % (auto) 7.2 % (0.0-12.0); Neutrophils # (auto) 12.7 10 ^3/uL (1.6-8.6); Neutrophils % (auto) 83.8 % (37.0-80.0); Nucleated Red Blood Cells % 0.1 %; Red Blood Cells 4.36 10^6/uL (4.0-5.20); Red Cell Distribution Width 20.5 % (11.8-14.3); White Blood Cell 15.1 10^3/uL (4.4-10.8)
[2021-10-15] MEDS ORDERED: SODIUM CHLORIDE 0.9% 1,000 ML IV ONE (08:30)
[2021-10-15 08:43] LABS: INR 1.03 (0.9-1.15); Partial Thromboplastin Time 22.5 sec (23.6-33.0)
[2021-10-15 08:46] LABS: Albumin 2.3 g/dL (3.4-5.0); BUN/Creatinine Ratio 28.8; Magnesium 2.2 mg/dL (1.6-2.6)
[2021-10-15 08:50] LABS: Bilirubin, Total 0.3 mg/dL (0.2-1.0)
[2021-10-15 09:20] LABS: Potassium 2.9 mmol/L (3.5-5.1)
[2021-10-15] MEDS ORDERED: POTASSIUM EFFERVESENT TAB 25 MEQ PO ONE (09:30)
[2021-10-15 10:56] LABS: Urine Bacteria NONE SEEN /hpf (None Seen); Urine Blood Negative /uL (Negative); Urine Specific Gravity 1.015 (1.001-1.035); Urine WBC 57 /hpf (0 - 5)
[2021-10-15] MEDS ORDERED: IOHEXOL 350 MG/ML 100ML IJ ONE (11:51)
[2021-10-15] MEDS ORDERED: HEPARIN SODIUM (PORCINE) 5000 UNITS/ML 1ML VIAL IV ONE (12:45)
[2021-10-15] MEDS ORDERED: HEPARIN DRIP/D5W 100UNITS/ML 250 ML IV SCH (12:45)
[2021-10-15] MEDS ORDERED: cefTRIAXone 1GM/50ML D5W 50 ML IV ONE (12:45)
[2021-10-15] MEDS ORDERED: DOCUSATE CALCIUM 240 MG CAP PO PRN (13:15)
[2021-10-15] MEDS ORDERED: ACETAMINOPHEN 500 MG TAB PO PRN (13:15)
[2021-10-15] MEDS ORDERED: hydrALAZINE HCL 20 MG/ML VL IV PRN (13:15)
[2021-10-15] MEDS ORDERED: MORPHINE SULFATE INJECTION 2 MG/ML SYRG IV PRN (13:15)
[2021-10-15] MEDS ORDERED: NITROGLYCERIN 0.4 MG SL TAB SL PRN (13:15)
[2021-10-15] MEDS ORDERED: ONDANSETRON HCL 4 MG/2 ML VIAL IV PRN (13:15)
[2021-10-15] MEDS ORDERED: DEXTROSE (50%) 50ML SYRG IV PRN (13:15)
[2021-10-15] MEDS: SODIUM CHLORIDE 0.9% 1,000 ML IV SCH (14:25)
[2021-10-15] MEDS ORDERED: ENOXAPARIN SOD 60 MG/0.6 ML SYRINGE SC ONE (15:00)
[2021-10-15] MEDS: InsuLIN REG 1unit/0.01ml Soln (100units/ml) SC SCH ×2 (16:00→20:20)
[2021-10-15] MEDS: ACCU-CHEK COMFORT CURVE STRIP VI SCH ×2 (16:01→20:19)
[2021-10-15 17:27] VITALS: BP 125/82
[2021-10-15 17:34] VITALS: BP 125/82
[2021-10-15] MEDS: MORPHINE SULFATE INJECTION 2 MG/ML SYRG IV PRN ×2 (17:41→20:42)
[2021-10-15 20:22] LABS: BUN/Creatinine Ratio 23.1; Calcium 8.6 mg/dL (8.5-10.1); Potassium 3.6 mmol/L (3.5-5.1)
[2021-10-15 21:46] VITALS: BP 133/83
[2021-10-15] MEDS: ENOXAPARIN SOD 60 MG/0.6 ML SYRINGE SC SCH (22:00)
[2021-10-15] MEDS ORDERED: PANTOPRAZOLE 40 MG/10 ML VIAL INJ IV ONE (22:15)
[2021-10-15] MEDS ORDERED: IBUPROFEN 400 MG TAB PO ONE (22:15)
[2021-10-16] MEDS: MORPHINE SULFATE INJECTION 2 MG/ML SYRG IV PRN ×4 (00:55→10:41)
[2021-10-16] MEDS: ACCU-CHEK COMFORT CURVE STRIP VI SCH ×4 (04:00→11:59)
[2021-10-16] MEDS: InsuLIN REG 1unit/0.01ml Soln (100units/ml) SC SCH ×4 (04:00→11:59)
[2021-10-16 05:00] VITALS: BP 135/88
[2021-10-16 05:24] LABS: Basophils # (auto) 0.1 10 ^3/uL (0-0.2); Eosinophils # (auto) 0.2 10 ^3/uL (0-0.8); Hemoglobin 9.5 g/dL (12.2-16.2); Mean Corpuscular Hgb Conc. 32.5 g/dL (32.0-36.0); White Blood Cell 12.3 10^3/uL (4.4-10.8)
[2021-10-16 05:26] LABS: Basophils % (auto) 0.7 % (0.0-2.0); Eosinophils % (auto) 1.8 % (0.0-7.0); Hematocrit 29.4 % (36.0-46.0); Lymphocytes # (auto) 1.4 10 ^3/uL (0.4-5.4); Lymphocytes % (auto) 11.2 % (10.0-50.0); Monocytes # (auto) 1.2 10 ^3/uL (0-1.3); Monocytes % (auto) 9.9 % (0.0-12.0); Neutrophils # (auto) 9.4 10 ^3/uL (1.6-8.6); Neutrophils % (auto) 76.4 % (37.0-80.0); Red Blood Cells 3.82 10^6/uL (4.0-5.20)
[2021-10-16 05:27] LABS: Albumin 1.8 g/dL (3.4-5.0); Calcium 8.6 mg/dL (8.5-10.1)
[2021-10-16 05:29] LABS: BUN/Creatinine Ratio 21.4
[2021-10-16 05:32] LABS: Bilirubin, Total 0.3 mg/dL (0.2-1.0); Total Protein 5.2 g/dL (6.4-8.2)
[2021-10-16 05:35] LABS: Potassium 2.9 mmol/L (3.5-5.1)
[2021-10-16 05:38] LABS: INR 1.05 (0.9-1.15)
[2021-10-16 05:41] LABS: Red Cell Distribution Width 20.2 % (11.8-14.3)
[2021-10-16] MEDS ORDERED: POTASSIUM CHL 20 Meq TABLET PO ONE (06:00)
[2021-10-16] MEDS: SODIUM CHLORIDE 0.9% 1,000 ML IV SCH (06:46)
[2021-10-16] MEDS: PANTOPRAZOLE 40 MG TAB PO SCH (08:58)
[2021-10-16] MEDS: ENOXAPARIN SOD 60 MG/0.6 ML SYRINGE SC SCH ×2 (08:58→21:38)
[2021-10-16] MEDS: cefTRIAXone 1GM/50ML D5W 50 ML IV SCH (08:59)
[2021-10-16] MEDS: HCTZ 25 MG TAB PO SCH (08:59)
[2021-10-16 09:00] VITALS: BP 133/73
[2021-10-16 13:00] VITALS: BP 133/93
[2021-10-16] MEDS: HYDROcodone-ACET 7.5/325MG TAB PO PRN ×2 (13:43→20:50)
[2021-10-16] MEDS ORDERED: predniSONE 20 MG TAB PO ONE (14:00)
[2021-10-16] MEDS ORDERED: hydrOXYchloroQUINE SULFATE 200 MG TAB PO ONE (14:00)
[2021-10-16 17:00] VITALS: BP 120/78
[2021-10-16 22:00] VITALS: BP 121/76
[2021-10-16] MEDS ORDERED: ATORVASTATIN 20 MG TAB PO SCH (22:00)
[2021-10-17] MEDS: HYDROcodone-ACET 7.5/325MG TAB PO PRN ×3 (01:20→15:50)
[2021-10-17 05:00] VITALS: BP 132/81
[2021-10-17 08:00] VITALS: BP 134/78
[2021-10-17] MEDS: cefTRIAXone 1GM/50ML D5W 50 ML IV SCH (09:00)
[2021-10-17] MEDS ORDERED: predniSONE 20 MG TAB PO SCH (10:00)
[2021-10-17] MEDS ORDERED: hydrOXYchloroQUINE SULFATE 200 MG TAB PO SCH (10:00)
[2021-10-17] MEDS: ENOXAPARIN SOD 60 MG/0.6 ML SYRINGE SC SCH (10:18)
[2021-10-17] MEDS: HCTZ 25 MG TAB PO SCH (10:18)
[2021-10-17] MEDS: PANTOPRAZOLE 40 MG TAB PO SCH (10:18)
[2021-10-17] MEDS ORDERED: ONDANSETRON HCL 4 MG/2 ML VIAL IV PRN (11:30)
[2021-10-17 12:00] VITALS: BP 114/64
[2021-10-17] MEDS ORDERED: APIX5TAB PO (14:48)
[2021-10-17] MEDS ORDERED: ONDA-144 PO (14:51)
[2021-10-17] MEDS ORDERED: LEVO750T64 PO (14:51)
[2021-10-17 16:00] VITALS: BP 121/76
[2021-10-17] MEDS ORDERED: HYDR1TAB97 PO (16:11)
[2021-10-17] MEDS ORDERED: APIXABAN 5 MG TAB PO ONE (17:00)
== END 2021-10-17 18:16 | disposition home or self-care (01) | DRG 175 ==
LOC: ER 07:40 → TELE-WESTW 13:11
PROVIDERS: ADMIT Family Medicine; ATTEND Internal Medicine
DX: I26.99 Other pulmonary embolism without acute cor pulmonale (principal); J18.9 Pneumonia, unspecified organism; E43 Unspecified severe protein-calorie malnutrition; Z68.1 Body mass index [BMI] 19.9 or less, adult; N39.0 Urinary tract infection, site not specified; D68.69 Other thrombophilia; E87.6 Hypokalemia; E86.0 Dehydration; M81.0 Age-related osteoporosis without current pathological fracture; C50.911 Malignant neoplasm of unspecified site of right female breast; D50.9 Iron deficiency anemia, unspecified; E05.90 Thyrotoxicosis, unspecified without thyrotoxic crisis or storm; E11.9 Type 2 diabetes mellitus without complications; Z20.822 Contact with and (suspected) exposure to COVID-19; E03.9 Hypothyroidism, unspecified; E07.81 Sick-euthyroid syndrome; I10 Essential (primary) hypertension; E78.5 Hyperlipidemia, unspecified; K21.9 Gastro-esophageal reflux disease without esophagitis; M06.9 Rheumatoid arthritis, unspecified; M19.90 Unspecified osteoarthritis, unspecified site; Z79.52 Long term (current) use of systemic steroids; Z17.0 Estrogen receptor positive status [ER+]; Z85.3 Personal history of malignant neoplasm of breast; Z86.718 Personal history of other venous thrombosis and embolism; Z89.421 Acquired absence of other right toe(s)
CPT/HCPCS: 36415; 71045; 71275; 80048; 80053; 81001; 82962; 83036; 83735; 84132; 84443; 84484; 85025; 85379; 85610; 85730; 87086; 87088; 87186; 87205; 93005; 93970; 96361; 96365; 96375; C9113; G0378; J0696; J1815; J2405

== ENCOUNTER 2022-05-13 10:38 | Emergency (ER) | payer OTHER, MEDICARE ==
[~2022-05-13] VITALS: Ht 172.7 cm; Wt 55.3 kg
[~2022-05-13 10:38] MED LIST changes: +APIX5TAB PO; +HYDR1TAB97 PO; +LEVO750T64 PO; +ONDA-144 PO
[2022-05-13 11:32] LABS: Basophils # (auto) 0.1 10 ^3/uL (0-0.2); Basophils % (auto) 0.4 % (0.0-2.0); Eosinophils % (auto) 0.3 % (0.0-7.0); Lymphocytes # (auto) 1.2 10 ^3/uL (0.4-5.4); Mean Corpuscular Volume 62.6 fL (80.0-100.0); Monocytes # (auto) 0.8 10 ^3/uL (0-1.3)
[2022-05-13 11:34] LABS: Eosinophils # (auto) 0.1 10 ^3/uL (0-0.8); Hematocrit 31.1 % (36.0-46.0); Hemoglobin 8.6 g/dL (12.2-16.2); Lymphocytes % (auto) 7.4 % (10.0-50.0); Mean Corpuscular Hemoglobin 17.2 pg (28.0-32.0); Mean Corpuscular Hgb Conc. 27.5 g/dL (32.0-36.0); Monocytes % (auto) 5.3 % (0.0-12.0); Neutrophils # (auto) 13.5 10 ^3/uL (1.6-8.6); Neutrophils % (auto) 86.6 % (37.0-80.0); Red Blood Cells 4.97 10^6/uL (4.0-5.20); Red Cell Distribution Width 20.4 % (11.8-14.3); White Blood Cell 15.6 10^3/uL (4.4-10.8)
[2022-05-13 11:45] LABS: INR 0.96 (0.9-1.15); Partial Thromboplastin Time 23.1 sec (24.6-33.4)
[2022-05-13 11:50] LABS: Calcium 9.4 mg/dL (8.5-10.1); Potassium 4.5 mmol/L (3.5-5.1)
[2022-05-13 11:56] LABS: Bilirubin, Total 0.4 mg/dL (0.2-1.0); Total Protein 6.9 g/dL (6.4-8.2)
[2022-05-13] MEDS ORDERED: AMOX500T86 PO (12:16)
[2022-05-13 13:01] VITALS: BP 148/93
== END 2022-05-13 13:02 | disposition home or self-care (01) ==
LOC: ER 10:44
DX: M66.0 Rupture of popliteal cyst (principal); I10 Essential (primary) hypertension; E11.9 Type 2 diabetes mellitus without complications; Z79.1 Long term (current) use of non-steroidal anti-inflammatories (NSAID); Z79.899 Other long term (current) drug therapy
CPT/HCPCS: 36415; 80053; 85025; 85610; 85730; 93971

== ENCOUNTER 2022-05-16 09:07 | Emergency (ER) | payer OTHER, MEDICARE ==
[~2022-05-16] VITALS: Ht 172.7 cm; Wt 55.0 kg
[~2022-05-16 09:07] MED LIST changes: +AMOX500T86 PO
[2022-05-16 11:39] VITALS: BP 130/77
[2022-05-16] MEDS ORDERED: BACDST PO (12:07)
== END 2022-05-16 12:07 | disposition home or self-care (01) ==
LOC: ER 09:07
DX: L02.416 Cutaneous abscess of left lower limb (principal); E11.9 Type 2 diabetes mellitus without complications; I10 Essential (primary) hypertension; Z79.84 Long term (current) use of oral hypoglycemic drugs; Z79.899 Other long term (current) drug therapy; Z98.890 Other specified postprocedural states

== ENCOUNTER 2024-04-01 10:06 | Inpatient (IN) | payer OTHER, MEDICARE ==
[~2024-04-01] VITALS: Ht 172.7 cm; Wt 68.2 kg
[~2024-04-01 10:06] MED LIST changes: -ALEN70TA2 PO; +ALEN70TA21 PO; -ATO40T PO; +ATOR-507 PO; +BACDST PO; +IBUP-1456 PO; -IBUP800T27 PO; +LEVO750T40 PO; -LEVO750T64 PO
[2024-04-01 11:00] VITALS: PULSE 107; RESP 19; O2SAT 97
[2024-04-01] MEDS: SODIUM CHLORIDE 0.9% 1,000 ML IV ONE ×3 (11:15→17:00)
[2024-04-01] MEDS: MORPHINE SULFATE 4 MG/ML SYR/VIAL IV ONE (11:19)
[2024-04-01] MEDS: ONDANSETRON HCL 4 MG/2 ML VIAL IV ONE ×2 (11:20→17:01)
[2024-04-01 11:35] LABS: Basophils # (auto) 0.1 10 ^3/uL (0-0.2); Monocytes # (auto) 1.4 10 ^3/uL (0-1.3); Monocytes % (auto) 9.3 % (0.0-12.0); Nucleated Red Blood Cells % 0.1 %; White Blood Cell 14.7 10^3/uL (4.4-10.8)
[2024-04-01 11:38] LABS: Eosinophils # (auto) 0.2 10 ^3/uL (0-0.8); Eosinophils % (auto) 1.7 % (0.0-7.0); Hematocrit 34.4 % (36.0-46.0); Hemoglobin 10.4 g/dL (12.2-16.2); Lymphocytes # (auto) 1.8 10 ^3/uL (0.4-5.4); Lymphocytes % (auto) 12.4 % (10.0-50.0); Mean Corpuscular Hemoglobin 25.4 pg (28.0-32.0); Mean Corpuscular Hgb Conc. 30.1 g/dL (32.0-36.0); Mean Corpuscular Volume 84.4 fL (80.0-100.0); Neutrophils # (auto) 11.1 10 ^3/uL (1.6-8.6); Neutrophils % (auto) 75.6 % (37.0-80.0); Platelet Count (auto) 422 10^3/uL (140-450); Red Blood Cells 4.07 10^6/uL (4.0-5.20); Red Cell Distribution Width 19.1 % (11.8-14.3)
[2024-04-01 11:50] LABS: Chloride 112 mmol/L (98-107); Potassium 3.9 mmol/L (3.5-5.1); Sodium 138 mmol/L (136-145)
[2024-04-01 11:51] LABS: Anion Gap 12 (5-15); Calcium 10.3 mg/dL (8.7-10.4); Carbon Dioxide 14 mmol/L (20-31)
[2024-04-01 11:56] LABS: BUN/Creatinine Ratio 20.5 (10.0-20.0); Blood Urea Nitrogen 16 mg/dL (9-23); Glucose 131 mg/dL (74-106)
[2024-04-01 13:33] LABS: Urine Bacteria None Seen /hpf (None Seen)
[2024-04-01 13:53] LABS: Urine Blood Negative /uL (Negative); Urine Clarity Turbid (Clear); Urine Color Yellow (Yellow); Urine Hyaline Cast FEW /lpf (0 - 2); Urine Mucus FEW (None Seen); Urine Protein, UAD 1+ (Negative); Urine Specific Gravity 1.017 (1.001-1.035); Urine Urobilinogen Normal (Negative); Urine WBC 100 /hpf (0 - 5); Urine pH 5.5 (5.0-9.0)
[2024-04-01] MEDS: CEFEPIME 2GM/50ML NS 50 ML IV ONE (16:15)
[2024-04-01] MEDS ORDERED: hydrALAZINE HCL 20 MG/ML VL IV PRN (16:30)
[2024-04-01] MEDS ORDERED: DEXTROSE (50%) 50ML SYRG IV PRN (16:30)
[2024-04-01] MEDS ORDERED: ACETAMINOPHEN 325 MG TAB PO PRN (16:30)
[2024-04-01] MEDS: ACCU-CHEK COMFORT CURVE STRIP VI SCH (17:00)
[2024-04-01] MEDS: SODIUM CHLORIDE 0.9% 1,000 ML IV SCH ×2 (17:00→20:56)
[2024-04-01] MEDS: InsuLIN REG 1unit/0.01ml Soln (100units/ml) SC SCH (17:00)
[2024-04-01] MEDS: KETAMINE 50mg/ML 10ml Vial (500mg/10ml) IV ONE (17:01)
[2024-04-01] MEDS ORDERED: VANCOMYCIN PER PHARMACY 0 MG IV SCH (17:15)
[2024-04-01] MEDS ORDERED: MORPHINE SULFATE INJ 2 MG/ml SYRG IV PRN (17:15)
[2024-04-01] MEDS ORDERED: NITROGLYCERIN 0.4 MG SL TAB SL PRN (17:15)
[2024-04-01] MEDS: VANCOMYCIN 1GM/200ML PREMIX 250 ML IV ONE (17:37)
[2024-04-01 19:30] VITALS: PULSE 110; RESP 16; O2SAT 99
[2024-04-01] MEDS ORDERED: VANCOMYCIN 1GM/200ML PREMIX 250 ML IV SCH (20:30)
[2024-04-01] MEDS: cefTRIAXone 1GM/50ML D5W 50 ML IV SCH (21:39)
[2024-04-01] MEDS: ALBUMIN 5% 250 ML IV ONE (21:39)
[2024-04-01] MEDS: traMADol HCL 50 MG TAB PO ONE (22:33)
[2024-04-02 02:40] VITALS: PULSE 111; RESP 20; O2SAT 97
[2024-04-02 04:40] LABS: Basophils # (auto) 0.1 10 ^3/uL (0-0.2); Basophils % (auto) 0.4 % (0.0-2.0); Eosinophils # (auto) 0.2 10 ^3/uL (0-0.8); Eosinophils % (auto) 1.5 % (0.0-7.0); Hematocrit 26.7 % (36.0-46.0); Hemoglobin 8.1 g/dL (12.2-16.2); Lymphocytes # (auto) 1.3 10 ^3/uL (0.4-5.4); Lymphocytes % (auto) 9.7 % (10.0-50.0); Mean Corpuscular Hemoglobin 25.5 pg (28.0-32.0); Mean Corpuscular Hgb Conc. 30.3 g/dL (32.0-36.0); Monocytes # (auto) 1.2 10 ^3/uL (0-1.3); Neutrophils # (auto) 10.5 10 ^3/uL (1.6-8.6); Neutrophils % (auto) 79.4 % (37.0-80.0); Platelet Count (auto) 342 10^3/uL (140-450); Red Blood Cells 3.18 10^6/uL (4.0-5.20); Red Cell Distribution Width 18.7 % (11.8-14.3); White Blood Cell 13.3 10^3/uL (4.4-10.8)
[2024-04-02 04:58] LABS: Alanine Aminotransferase 15 U/L (7-40); Albumin 2.9 g/dL (3.2-4.8); Alkaline Phosphatase 123 U/L (46-116); Anion Gap 11 (5-15); Aspartate Aminotransferase 16 U/L (13-40); BUN/Creatinine Ratio 16.4 (10.0-20.0); Bilirubin, Total 0.3 mg/dL (0.2-1.0); Blood Urea Nitrogen 9 mg/dL (9-23); Calcium 8.6 mg/dL (8.7-10.4); Carbon Dioxide 13 mmol/L (20-31); Chloride 113 mmol/L (98-107); Glucose 102 mg/dL (74-106); Potassium 3.2 mmol/L (3.5-5.1); Sodium 137 mmol/L (136-145); Total Protein 4.9 g/dL (5.7-8.2)
[2024-04-02] MEDS: DIGOXIN (250MCG/ML) 2 ML AMPULE IV ONE (04:58)
[2024-04-02] MEDS: VANCOMYCIN 1GM/200ML PREMIX 250 ML IV SCH (05:09)
[2024-04-02 07:30] VITALS: PULSE 133; RESP 22; O2SAT 96
[2024-04-02] MEDS: PANTOPRAZOLE 40 MG/10 ML VIAL INJ IV SCH (09:56)
[2024-04-02] MEDS: HYDROcodone-ACET 5/325MG TAB PO PRN (10:51)
[2024-04-02] MEDS: NOREPINEPHRINE 8 MG/250ML KIT 250 ML IV ONE (12:29)
[2024-04-02] MEDS: NOREPINEPHRINE 8 MG/250ML KIT 250 ML IV SCH (12:35)
[2024-04-02] MEDS: POTASSIUM CHL 20 Meq TABLET PO ONE ×2 (12:38→16:57)
[2024-04-02 12:42] LABS: Magnesium 1.5 mg/dL (1.6-2.6)
[2024-04-02 13:20] LABS: Hemoglobin 8.6 g/dL (12.2-16.2)
[2024-04-02 13:21] LABS: Hematocrit 28.1 % (36.0-46.0)
[2024-04-02] MEDS: MAGNESIUM SULFATE 1GM/100ML 100 ML IV SCH (14:15)
[2024-04-02] MEDS: SODIUM CHLORIDE 0.9% 500 ML IV ONE (17:02)
[2024-04-02] MEDS: ONDANSETRON HCL 4 MG/2 ML VIAL IV PRN (19:03)
[2024-04-02 19:05] VITALS: PULSE 133; RESP 22; O2SAT 96
[2024-04-02] MEDS: MORPHINE SULFATE INJ 2 MG/ml SYRG IV PRN (20:02)
[2024-04-02] MEDS: ATORVASTATIN 20 MG TAB PO SCH (22:00)
[2024-04-03] VITALS (8 sets, daily range): BP systolic 86–108; BP diastolic 44–68; PULSE 106–129; RESP 16–22; TEMP 97.9; O2SAT 95–99
[2024-04-03 05:53] LABS: Basophils # (auto) 0.1 10 ^3/uL (0-0.2); Eosinophils # (auto) 0.3 10 ^3/uL (0-0.8); Eosinophils % (auto) 2.1 % (0.0-7.0); Lymphocytes # (auto) 1.2 10 ^3/uL (0.4-5.4); Monocytes # (auto) 1.3 10 ^3/uL (0-1.3)
[2024-04-03 05:55] LABS: Hemoglobin 9.1 g/dL (12.2-16.2); Lymphocytes % (auto) 8.5 % (10.0-50.0); Mean Corpuscular Hgb Conc. 30.5 g/dL (32.0-36.0); Mean Corpuscular Volume 85.3 fL (80.0-100.0); Neutrophils # (auto) 11.2 10 ^3/uL (1.6-8.6); Neutrophils % (auto) 79.4 % (37.0-80.0); Platelet Count (auto) 364 10^3/uL (140-450); Red Blood Cells 3.51 10^6/uL (4.0-5.20); Red Cell Distribution Width 19.4 % (11.8-14.3); White Blood Cell 14.1 10^3/uL (4.4-10.8)
[2024-04-03 06:03] LABS: Alanine Aminotransferase 19 U/L (7-40); Albumin 2.9 g/dL (3.2-4.8); Alkaline Phosphatase 162 U/L (46-116); Anion Gap 12 (5-15); Aspartate Aminotransferase 13 U/L (13-40); Bilirubin, Total 0.2 mg/dL (0.2-1.0); Calcium 9.2 mg/dL (8.7-10.4); Carbon Dioxide 12 mmol/L (20-31); Chloride 111 mmol/L (98-107); Glucose 118 mg/dL (74-106); Potassium 4.2 mmol/L (3.5-5.1); Sodium 135 mmol/L (136-145); Total Protein 5.4 g/dL (5.7-8.2)
[2024-04-03 06:04] LABS: BUN/Creatinine Ratio 9.1 (10.0-20.0); Blood Urea Nitrogen < 5 mg/dL (9-23)
[2024-04-03 06:26] LABS: Platelet Estimate Adequate
[2024-04-03] MEDS: IOHEXOL 350 MG/ML 100ML IJ ONE (08:04)
[2024-04-03 10:43] LABS: INR 1.01 (0.9-1.15); Partial Thromboplastin Time 24.6 SEC (24.5-34.5); Prothrombin Time 10.7 sec (9.3-11.8)
[2024-04-03] MEDS: HEPARIN SODIUM (PORCINE) 5000 UNITS/ML 1ML VIAL IV ONE ×2 (11:21→18:54)
[2024-04-03] MEDS: HEPARIN DRIP/D5W 100UNITS/ML 250 ML IV SCH ×2 (11:22→18:07)
[2024-04-03 11:44] LABS: % Iron Saturation 10.1 % (15-50)
[2024-04-03 12:29] LABS: Base Excess -14.6 mmol/L (-2.0-3.0)
[2024-04-03 17:42] LABS: INR 0.97 (0.9-1.15); Prothrombin Time 10.3 sec (9.3-11.8)
[2024-04-03] MEDS: SODIUM BICARB 50mEq/50ml Vial 50 ML in SOD CHL 0.45% 1,000 ML IV SCH (18:55)
[2024-04-04] VITALS (7 sets, daily range): BP systolic 107–120; BP diastolic 59–70; PULSE 79–113; RESP 12–19; TEMP 97.6–98.6; O2SAT 97–100
[2024-04-04 01:02] LABS: INR 1.03 (0.9-1.15); Prothrombin Time 10.9 sec (9.3-11.8)
[2024-04-04 04:09] LABS: Eosinophils # (auto) 0.3 10 ^3/uL (0-0.8); Hematocrit 27.3 % (36.0-46.0); Hemoglobin 8.6 g/dL (12.2-16.2); Mean Corpuscular Hgb Conc. 31.7 g/dL (32.0-36.0); Monocytes # (auto) 1.1 10 ^3/uL (0-1.3); Neutrophils # (auto) 9.1 10 ^3/uL (1.6-8.6)
[2024-04-04 04:12] LABS: Basophils # (auto) 0.1 10 ^3/uL (0-0.2); Basophils % (auto) 0.5 % (0.0-2.0); Eosinophils % (auto) 2.2 % (0.0-7.0); Lymphocytes # (auto) 0.9 10 ^3/uL (0.4-5.4); Lymphocytes % (auto) 8.1 % (10.0-50.0); Mean Corpuscular Hemoglobin 25.9 pg (28.0-32.0); Mean Corpuscular Volume 81.9 fL (80.0-100.0); Monocytes % (auto) 9.3 % (0.0-12.0); Neutrophils % (auto) 79.9 % (37.0-80.0); Platelet Count (auto) 311 10^3/uL (140-450); Red Blood Cells 3.33 10^6/uL (4.0-5.20); Red Cell Distribution Width 19.1 % (11.8-14.3); White Blood Cell 11.4 10^3/uL (4.4-10.8)
[2024-04-04 04:25] LABS: Alanine Aminotransferase 13 U/L (7-40); Albumin 2.8 g/dL (3.2-4.8); Alkaline Phosphatase 153 U/L (46-116); Anion Gap 7 (5-15); Aspartate Aminotransferase 10 U/L (13-40); Calcium 8.8 mg/dL (8.7-10.4); Carbon Dioxide 19 mmol/L (20-31); Chloride 110 mmol/L (98-107); Glucose 135 mg/dL (74-106); Potassium 3.5 mmol/L (3.5-5.1); Sodium 136 mmol/L (136-145)
[2024-04-04 04:26] LABS: Bilirubin, Total 0.2 mg/dL (0.2-1.0)
[2024-04-04 04:29] LABS: BUN/Creatinine Ratio 10.2 (10.0-20.0); Blood Urea Nitrogen < 5 mg/dL (9-23)
[2024-04-04 08:19] LABS: INR 1.02 (0.9-1.15); Partial Thromboplastin Time 36.2 SEC (24.5-34.5); Prothrombin Time 10.8 sec (9.3-11.8)
[2024-04-04 11:32] LABS: Base Excess -7.3 mmol/L (-2.0-3.0)
[2024-04-04 12:38] LABS: Hematocrit 29.9 % (36.0-46.0)
[2024-04-04 12:39] LABS: Hemoglobin 9.3 g/dL (12.2-16.2)
[2024-04-04] MEDS ORDERED: GABA-1250 PO (13:22)
[2024-04-04] MEDS ORDERED: LISI-285 PO (13:22)
[2024-04-04] MEDS ORDERED: AMLO1TAB22 PO (13:22)
[2024-04-04] MEDS ORDERED: LETR2.5T PO (13:22)
[2024-04-04] MEDS ORDERED: GLIP5TAB21 PO (13:22)
[2024-04-04] MEDS ORDERED: HYDR-4798 PO (13:22)
[2024-04-04] MEDS ORDERED: HYDR200T36 PO (13:22)
[2024-04-04] MEDS ORDERED: FURO1TAB31 PO (13:22)
[2024-04-04] MEDS ORDERED: PRED1PAK8 PO (13:22)
[2024-04-04] MEDS ORDERED: BACL10TA PO (13:22)
[2024-04-04 17:39] LABS: INR 1.01 (0.9-1.15); Partial Thromboplastin Time 39.3 SEC (24.5-34.5); Prothrombin Time 10.7 sec (9.3-11.8)
[2024-04-04] MEDS: HEPARIN DRIP/D5W 100UNITS/ML 250 ML IV SCH (18:26)
[2024-04-04] MEDS: VANCOMYCIN 1GM/200ML PREMIX 250 ML IV SCH (20:22)
[2024-04-05] VITALS (8 sets, daily range): BP systolic 105–120; BP diastolic 64–72; PULSE 98–114; RESP 16–19; TEMP 97.9–98.6; O2SAT 94–99
[2024-04-05 01:34] LABS: INR 1.03 (0.9-1.15); Partial Thromboplastin Time 34.1 SEC (24.5-34.5); Prothrombin Time 10.9 sec (9.3-11.8)
[2024-04-05] MEDS: HEPARIN SODIUM (PORCINE) 5000 UNITS/ML 1ML VIAL IV ONE (02:11)
[2024-04-05] MEDS: HEPARIN DRIP/D5W 100UNITS/ML 250 ML IV SCH ×3 (02:13→23:47)
[2024-04-05 06:36] LABS: Basophils # (auto) 0.1 10 ^3/uL (0-0.2); Basophils % (auto) 0.5 % (0.0-2.0); Eosinophils # (auto) 0.3 10 ^3/uL (0-0.8); Hematocrit 26.9 % (36.0-46.0); Hemoglobin 8.6 g/dL (12.2-16.2); Lymphocytes # (auto) 0.9 10 ^3/uL (0.4-5.4); Lymphocytes % (auto) 9.1 % (10.0-50.0); Mean Corpuscular Hemoglobin 25.9 pg (28.0-32.0); Mean Corpuscular Volume 81.1 fL (80.0-100.0); Monocytes # (auto) 1.1 10 ^3/uL (0-1.3); Monocytes % (auto) 10.2 % (0.0-12.0); Neutrophils % (auto) 77.2 % (37.0-80.0); Platelet Count (auto) 356 10^3/uL (140-450); Red Blood Cells 3.31 10^6/uL (4.0-5.20); Red Cell Distribution Width 18.7 % (11.8-14.3); White Blood Cell 10.3 10^3/uL (4.4-10.8)
[2024-04-05 06:56] LABS: Alanine Aminotransferase 10 U/L (7-40); Albumin 2.8 g/dL (3.2-4.8); Alkaline Phosphatase 142 U/L (46-116); Anion Gap 10 (5-15); Aspartate Aminotransferase 9 U/L (13-40); Bilirubin, Total 0.2 mg/dL (0.2-1.0); Calcium 8.9 mg/dL (8.7-10.4); Carbon Dioxide 18 mmol/L (20-31); Chloride 109 mmol/L (98-107); Glucose 119 mg/dL (74-106); Potassium 3.2 mmol/L (3.5-5.1); Sodium 137 mmol/L (136-145); Total Protein 5.1 g/dL (5.7-8.2)
[2024-04-05 06:58] LABS: BUN/Creatinine Ratio 10.6 (10.0-20.0); Blood Urea Nitrogen < 5 mg/dL (9-23)
[2024-04-05 10:06] LABS: INR 1.08 (0.9-1.15); Prothrombin Time 11.4 sec (9.3-11.8)
[2024-04-05 10:13] LABS: Partial Thromboplastin Time 108.9 SEC (24.5-34.5)
[2024-04-05] MEDS: POTASSIUM CHL 20 Meq TABLET PO ONE (18:10)
[2024-04-05] MEDS: MAGNESIUM SULFATE 1GM/100ML 100 ML IV ONE (18:11)
[2024-04-05] MEDS: FUROSEMIDE 20 MG/2 ML VIAL IV ONE (18:14)
[2024-04-05 23:03] LABS: INR 1.03 (0.9-1.15); Partial Thromboplastin Time 33.9 SEC (24.5-34.5); Prothrombin Time 10.9 sec (9.3-11.8)
[2024-04-05] MEDS: HEPARIN 1,000 UNITS/ml 1ML VIAL IV ONE (23:49)
[2024-04-06] VITALS (8 sets, daily range): BP systolic 93–108; BP diastolic 55–68; PULSE 102–124; RESP 18–19; TEMP 97.8–98.7; O2SAT 92–97
[2024-04-06 05:24] LABS: Basophils # (auto) 0 10 ^3/uL (0-0.2); Basophils % (auto) 0.2 % (0.0-2.0); Eosinophils # (auto) 0.3 10 ^3/uL (0-0.8); Eosinophils % (auto) 2.4 % (0.0-7.0); Hematocrit 25.1 % (36.0-46.0); Lymphocytes # (auto) 1.1 10 ^3/uL (0.4-5.4); Lymphocytes % (auto) 9.4 % (10.0-50.0); Mean Corpuscular Hemoglobin 25.7 pg (28.0-32.0); Mean Corpuscular Volume 80.3 fL (80.0-100.0); Monocytes % (auto) 8.2 % (0.0-12.0); Neutrophils # (auto) 9.4 10 ^3/uL (1.6-8.6); Neutrophils % (auto) 79.8 % (37.0-80.0); Platelet Count (auto) 364 10^3/uL (140-450); Red Blood Cells 3.13 10^6/uL (4.0-5.20); Red Cell Distribution Width 18.2 % (11.8-14.3); White Blood Cell 11.8 10^3/uL (4.4-10.8)
[2024-04-06 05:40] LABS: Albumin 2.8 g/dL (3.2-4.8); Alkaline Phosphatase 141 U/L (46-116); Anion Gap 7 (5-15); Aspartate Aminotransferase 12 U/L (13-40); BUN/Creatinine Ratio 12.5 (10.0-20.0); Bilirubin, Total 0.2 mg/dL (0.2-1.0); Blood Urea Nitrogen 6 mg/dL (9-23); Calcium 8.7 mg/dL (8.7-10.4); Carbon Dioxide 21 mmol/L (20-31); Chloride 109 mmol/L (98-107); Glucose 124 mg/dL (74-106); Magnesium 1.9 mg/dL (1.6-2.6); Potassium 3.6 mmol/L (3.5-5.1); Sodium 137 mmol/L (136-145); Total Protein 5.1 g/dL (5.7-8.2)
[2024-04-06 05:41] LABS: Alanine Aminotransferase < 9 U/L (7-40)
[2024-04-06 05:47] LABS: INR 1.1 (0.9-1.15); Prothrombin Time 11.6 sec (9.3-11.8)
[2024-04-06 05:49] LABS: Partial Thromboplastin Time 97.9 SEC (24.5-34.5)
[2024-04-06] MEDS: HEPARIN DRIP/D5W 100UNITS/ML 250 ML IV SCH (07:34)
[2024-04-06] MEDS: predniSONE 5 MG TAB PO SCH (09:22)
[2024-04-06] MEDS: FUROSEMIDE 20 MG/2 ML VIAL IV SCH (09:24)
[2024-04-06 13:57] LABS: INR 1.06 (0.9-1.15); Partial Thromboplastin Time 58.9 SEC (24.5-34.5); Prothrombin Time 11.2 sec (9.3-11.8)
[2024-04-06] MEDS: ALBUMIN 25% 50 ML IV SCH (18:37)
[2024-04-06] MEDS: POTASSIUM CHL 20 Meq TABLET PO ONE (18:38)
[2024-04-06 20:50] LABS: INR 1.08 (0.9-1.15); Partial Thromboplastin Time 59.4 SEC (24.5-34.5); Prothrombin Time 11.4 sec (9.3-11.8)
[2024-04-07] VITALS (8 sets, daily range): BP systolic 67–105; BP diastolic 56–68; PULSE 79–127; RESP 15–20; TEMP 97.9–98.5; O2SAT 92–100
[2024-04-07 06:39] LABS: Basophils # (auto) 0.1 10 ^3/uL (0-0.2); Basophils % (auto) 0.7 % (0.0-2.0); Eosinophils # (auto) 0.3 10 ^3/uL (0-0.8); Eosinophils % (auto) 2.3 % (0.0-7.0); Hematocrit 23.1 % (36.0-46.0); Hemoglobin 7.4 g/dL (12.2-16.2); Lymphocytes # (auto) 1.2 10 ^3/uL (0.4-5.4); Lymphocytes % (auto) 11.1 % (10.0-50.0); Mean Corpuscular Hemoglobin 25.6 pg (28.0-32.0); Mean Corpuscular Hgb Conc. 31.8 g/dL (32.0-36.0); Mean Corpuscular Volume 80.3 fL (80.0-100.0); Monocytes # (auto) 0.9 10 ^3/uL (0-1.3); Monocytes % (auto) 8.4 % (0.0-12.0); Neutrophils # (auto) 8.6 10 ^3/uL (1.6-8.6); Neutrophils % (auto) 77.5 % (37.0-80.0); Nucleated Red Blood Cells % 0.1 %; Platelet Count (auto) 366 10^3/uL (140-450); Red Blood Cells 2.87 10^6/uL (4.0-5.20); Red Cell Distribution Width 18.5 % (11.8-14.3); White Blood Cell 11.1 10^3/uL (4.4-10.8)
[2024-04-07 06:43] LABS: INR 1.05 (0.9-1.15); Partial Thromboplastin Time 52.6 SEC (24.5-34.5); Prothrombin Time 11.1 sec (9.3-11.8)
[2024-04-07 06:51] LABS: Albumin 3.1 g/dL (3.2-4.8); Alkaline Phosphatase 126 U/L (46-116); Anion Gap 6 (5-15); Aspartate Aminotransferase < 8 U/L (13-40); BUN/Creatinine Ratio 13.2 (10.0-20.0); Bilirubin, Total 0.2 mg/dL (0.2-1.0); Blood Urea Nitrogen 7 mg/dL (9-23); Calcium 9.2 mg/dL (8.7-10.4); Carbon Dioxide 24 mmol/L (20-31); Chloride 109 mmol/L (98-107); Glucose 104 mg/dL (74-106); Potassium 3.7 mmol/L (3.5-5.1); Sodium 139 mmol/L (136-145)
[2024-04-07 06:52] LABS: Total Protein 5.3 g/dL (5.7-8.2)
[2024-04-07 06:54] LABS: Alanine Aminotransferase < 9 U/L (7-40)
[2024-04-08] VITALS (8 sets, daily range): BP systolic 97–144; BP diastolic 65–93; PULSE 97–115; RESP 16–20; TEMP 97.3–98.4; O2SAT 90–96
[2024-04-08 05:42] LABS: Basophils # (auto) 0 10 ^3/uL (0-0.2); Hemoglobin 8.2 g/dL (12.2-16.2); Lymphocytes # (auto) 1.4 10 ^3/uL (0.4-5.4); Monocytes # (auto) 1.1 10 ^3/uL (0-1.3); Monocytes % (auto) 10.2 % (0.0-12.0); Nucleated Red Blood Cells % 0.2 %
[2024-04-08 05:43] LABS: Basophils % (auto) 0.3 % (0.0-2.0); Eosinophils # (auto) 0.4 10 ^3/uL (0-0.8); Eosinophils % (auto) 3.6 % (0.0-7.0); Hematocrit 25.7 % (36.0-46.0); Lymphocytes % (auto) 13.5 % (10.0-50.0); Mean Corpuscular Hemoglobin 26.7 pg (28.0-32.0); Mean Corpuscular Hgb Conc. 32.1 g/dL (32.0-36.0); Mean Corpuscular Volume 83.4 fL (80.0-100.0); Neutrophils # (auto) 7.7 10 ^3/uL (1.6-8.6); Neutrophils % (auto) 72.4 % (37.0-80.0); Platelet Count (auto) 413 10^3/uL (140-450); Red Blood Cells 3.08 10^6/uL (4.0-5.20); Red Cell Distribution Width 19.1 % (11.8-14.3); White Blood Cell 10.6 10^3/uL (4.4-10.8)
[2024-04-08 05:51] LABS: Alanine Aminotransferase 10 U/L (7-40); Alkaline Phosphatase 139 U/L (46-116); Calcium 9.7 mg/dL (8.7-10.4); Carbon Dioxide 23 mmol/L (20-31); Chloride 108 mmol/L (98-107); Glucose 104 mg/dL (74-106)
[2024-04-08 05:52] LABS: Anion Gap 7 (5-15); Aspartate Aminotransferase 11 U/L (13-40); BUN/Creatinine Ratio 10.7 (10.0-20.0); Bilirubin, Total 0.2 mg/dL (0.2-1.0); Blood Urea Nitrogen 6 mg/dL (9-23); Potassium 3.3 mmol/L (3.5-5.1); Sodium 138 mmol/L (136-145); Total Protein 5.4 g/dL (5.7-8.2)
[2024-04-08 05:58] LABS: INR 1.04 (0.9-1.15); Partial Thromboplastin Time 43.3 SEC (24.5-34.5)
[2024-04-08] MEDS: HEPARIN DRIP/D5W 100UNITS/ML 250 ML IV SCH ×2 (06:56→14:31)
[2024-04-08] MEDS: POTASSIUM CHL 20 Meq TABLET PO ONE (11:30)
[2024-04-08] MEDS: VANCOMYCIN 1GM/200ML PREMIX 200 ML IV SCH (12:00)
[2024-04-08 13:44] LABS: INR 1.08 (0.9-1.15); Partial Thromboplastin Time 40.5 SEC (24.5-34.5); Prothrombin Time 11.4 sec (9.3-11.8)
[2024-04-08 23:10] LABS: INR 1.08 (0.9-1.15); Partial Thromboplastin Time 62.9 SEC (24.5-34.5); Prothrombin Time 11.4 sec (9.3-11.8)
[2024-04-09] VITALS (8 sets, daily range): BP systolic 91–131; BP diastolic 38–76; PULSE 98–125; RESP 16–18; TEMP 98–98.4; O2SAT 92–96
[2024-04-09 05:33] LABS: Basophils # (auto) 0 10 ^3/uL (0-0.2); Eosinophils # (auto) 0.4 10 ^3/uL (0-0.8); Nucleated Red Blood Cells % 0.2 %; Platelet Count (auto) 450 10^3/uL (140-450)
[2024-04-09 05:35] LABS: Basophils % (auto) 0.4 % (0.0-2.0); Eosinophils % (auto) 3.7 % (0.0-7.0); Hematocrit 25.7 % (36.0-46.0); Hemoglobin 8.3 g/dL (12.2-16.2); Lymphocytes # (auto) 1.8 10 ^3/uL (0.4-5.4); Lymphocytes % (auto) 15.2 % (10.0-50.0); Mean Corpuscular Hgb Conc. 32.3 g/dL (32.0-36.0); Mean Corpuscular Volume 80.5 fL (80.0-100.0); Monocytes # (auto) 1.3 10 ^3/uL (0-1.3); Monocytes % (auto) 11.4 % (0.0-12.0); Neutrophils # (auto) 8.2 10 ^3/uL (1.6-8.6); Neutrophils % (auto) 69.3 % (37.0-80.0); Red Blood Cells 3.19 10^6/uL (4.0-5.20); White Blood Cell 11.8 10^3/uL (4.4-10.8)
[2024-04-09 05:51] LABS: INR 1.08 (0.9-1.15); Prothrombin Time 11.4 sec (9.3-11.8)
[2024-04-09 06:01] LABS: Chloride 106 mmol/L (98-107); Potassium 3.3 mmol/L (3.5-5.1); Sodium 140 mmol/L (136-145)
[2024-04-09 06:02] LABS: Anion Gap 9 (5-15); Carbon Dioxide 25 mmol/L (20-31)
[2024-04-09 06:03] LABS: Calcium 9.6 mg/dL (8.7-10.4)
[2024-04-09 06:04] LABS: Partial Thromboplastin Time 96.7 SEC (24.5-34.5)
[2024-04-09 06:07] LABS: Glucose 147 mg/dL (74-106)
[2024-04-09 06:08] LABS: BUN/Creatinine Ratio 14.5 (10.0-20.0); Blood Urea Nitrogen 8 mg/dL (9-23)
[2024-04-09] MEDS ORDERED: HEPARIN DRIP/D5W 100UNITS/ML 250 ML IV SCH ×2 (06:30→07:45)
[2024-04-09] MEDS: HEPARIN DRIP/D5W 100UNITS/ML 250 ML IV SCH (08:30)
[2024-04-09] MEDS: HYDROcodone-ACET 10/325MG TAB PO PRN (08:35)
[2024-04-09] MEDS: ENOXAPARIN SOD 80 MG/0.8ML SYRINGE SC SCH (12:17)
[2024-04-10] VITALS (7 sets, daily range): BP systolic 101–121; BP diastolic 64–80; PULSE 91–112; RESP 16–18; TEMP 98–98.4; O2SAT 93–100
[2024-04-10] MEDS: DOCUSATE SOD 100 MG CAP PO PRN (04:57)
[2024-04-10 05:47] LABS: Anion Gap 9 (5-15); Carbon Dioxide 26 mmol/L (20-31); Chloride 105 mmol/L (98-107); Potassium 3.2 mmol/L (3.5-5.1); Sodium 140 mmol/L (136-145)
[2024-04-10 05:48] LABS: Calcium 9.7 mg/dL (8.7-10.4)
[2024-04-10 05:52] LABS: Glucose 85 mg/dL (74-106)
[2024-04-10 05:53] LABS: BUN/Creatinine Ratio 15.7 (10.0-20.0); Blood Urea Nitrogen 8 mg/dL (9-23)
[2024-04-10] MEDS: CIPROFLOXACIN HYDROCHLORIDE 250 MG TAB PO SCH (12:00)
[2024-04-11] VITALS (7 sets, daily range): BP systolic 99–128; BP diastolic 60–73; PULSE 81–107; RESP 16–18; TEMP 97.8–98.2; O2SAT 94–98
[2024-04-11 05:17] LABS: Basophils # (auto) 0.1 10 ^3/uL (0-0.2); Nucleated Red Blood Cells % 0.2 %
[2024-04-11 05:19] LABS: Basophils % (auto) 0.7 % (0.0-2.0); Eosinophils # (auto) 0.4 10 ^3/uL (0-0.8); Eosinophils % (auto) 3.5 % (0.0-7.0); Hematocrit 26.6 % (36.0-46.0); Hemoglobin 8.5 g/dL (12.2-16.2); Lymphocytes # (auto) 1.3 10 ^3/uL (0.4-5.4); Lymphocytes % (auto) 11.6 % (10.0-50.0); Mean Corpuscular Hemoglobin 26.1 pg (28.0-32.0); Mean Corpuscular Hgb Conc. 31.8 g/dL (32.0-36.0); Mean Corpuscular Volume 82.2 fL (80.0-100.0); Monocytes # (auto) 1.2 10 ^3/uL (0-1.3); Monocytes % (auto) 10.7 % (0.0-12.0); Neutrophils % (auto) 73.5 % (37.0-80.0); Platelet Count (auto) 446 10^3/uL (140-450); Red Blood Cells 3.24 10^6/uL (4.0-5.20); Red Cell Distribution Width 19.1 % (11.8-14.3); White Blood Cell 10.8 10^3/uL (4.4-10.8)
[2024-04-11] MEDS ORDERED: LINE1TAB6 PO (13:10)
[2024-04-11] MEDS ORDERED: APIX5TAB PO (13:10)
[2024-04-11] MEDS ORDERED: CIPR250T26 PO (13:10)
[2024-04-11] MEDS: PNEUMOCOCCAL VACC POLYS 25 MCG/0.5 ML VIAL IM ONE (17:44)
[2024-04-11] MEDS: INFLUENZA TRIVALENT 2024-2025 0.5 ML INJ IM ONE (17:45)
== END 2024-04-11 17:30 | disposition home or self-care (01) | DRG 871 ==
LOC: ER 10:06 → EDBD 10:06 → TELE 17:18 → TELE-EAST 04-04 12:33 → EAST 04-10 00:05
PROVIDERS: ADMIT Nurse Practitioner Family; ATTEND Student in an Organized Health Care Education/Training Program
PROC: 05HA33Z Insertion of Infusion Device into Left Brachial Vein, Percutaneous Approach (ICD-10-PCS; principal; 2024-04-03)
PROC: B54MZZA Ultrasonography of Right Upper Extremity Veins, Guidance (ICD-10-PCS; 2024-04-03)
DX: A41.51 Sepsis due to Escherichia coli [E. coli] (principal); E43 Unspecified severe protein-calorie malnutrition; R65.21 Severe sepsis with septic shock; I26.99 Other pulmonary embolism without acute cor pulmonale; N39.0 Urinary tract infection, site not specified; L03.116 Cellulitis of left lower limb; L03.115 Cellulitis of right lower limb; D64.9 Anemia, unspecified; E03.9 Hypothyroidism, unspecified; E83.42 Hypomagnesemia; E87.6 Hypokalemia; E88.09 Other disorders of plasma-protein metabolism, not elsewhere classified; I10 Essential (primary) hypertension; M06.9 Rheumatoid arthritis, unspecified; G89.29 Other chronic pain; S39.012A Strain of muscle, fascia and tendon of lower back, initial encounter; M54.31 Sciatica, right side; E78.5 Hyperlipidemia, unspecified; E11.9 Type 2 diabetes mellitus without complications; X58.XXXA Exposure to other specified factors, initial encounter; Z90.13 Acquired absence of bilateral breasts and nipples; Z79.84 Long term (current) use of oral hypoglycemic drugs; Z85.3 Personal history of malignant neoplasm of breast; Z98.84 Bariatric surgery status; Z86.711 Personal history of pulmonary embolism; Z86.718 Personal history of other venous thrombosis and embolism; Y93.89 Activity, other specified; Y92.89 Other specified places as the place of occurrence of the external cause; Y99.8 Other external cause status; Z68.21 Body mass index [BMI] 21.0-21.9, adult; Z79.899 Other long term (current) drug therapy
CPT/HCPCS: 36415; 36600; 70450; 71045; 71275; 72131; 80048; 80053; 80061; 80202; 81001; 82565; 82805; 82962; 83036; 83540; 83550; 83735; 83880; 84132; 84443; 84484; 85014; 85018; 85025; 85379; 85610; 85730; 86850; 86900; 86901; 87040; 87077; 87081; 87086; 87088; 87186; 87205; 93005; 93306; 93970; 97163; G0378; J0692; J1815; J2405; J2470